=== PATIENT | female | born 1930 | race Caucasian/White ===

== ENCOUNTER 2017-05-14 09:16 | Inpatient (IN) | payer OTHER, MEDICARE ==
[2017-05-14] VITALS (10 sets, daily range): BP systolic 110–128; BP diastolic 53–86; PULSE 85–104; RESP 16–20; TEMP 97.4–97.8; O2SAT 95–97
[~2017-05-14] VITALS: Ht 149.9 cm; Wt 58.9 kg
[2017-05-14 10:39] LABS: AUTOMATED NEUTROPHIL # 10.8 TH/MM3 (1.8-7.7); BASOPHIL % 0.4 % (0.0-2.0); EOSINOPHIL % 0.1 % (0.0-4.0); HEMATOCRIT 30.3 % (35.0-46.0); HEMOGLOBIN 9.8 GM/DL (11.6-15.3); LYMPH % 8.4 % (9.0-44.0); LYMPHOCYTE # 1.1 TH/MM3 (1.0-4.8); MEAN CELL VOLUME 92.6 FL (80.0-100.0); MEAN CORPUSCULAR HEMOGLOBIN 29.9 PG (27.0-34.0); MEAN CORPUSCULAR HGB CONC 32.3 % (32.0-36.0); MEAN PLATELET VOLUME 8.2 FL (7.0-11.0); NEUT % 83.1 % (16.0-70.0); PLATELET COUNT 293 TH/MM3 (150-450); RED BLOOD COUNT 3.28 MIL/MM3 (4.00-5.30); RED CELL DISTRIBUTION WIDTH 14.2 % (11.6-17.2)
[2017-05-14 10:49] LABS: BILIRUBIN, URINE NEG (NEG); BLOOD, URINE NEG (NEG); GLUCOSE,URINE NEG (NEG); HYALINE CAST, URINE 1 /lpf (RARE); KETONE, URINE TRACE mg/dL (NEG); MUCUS URINE FEW /lpf (OCC); NITRITE,URINE NEG (NEG); PH, URINE 5.5 (5.0-8.5); URINE COLOR YELLOW (YELLW/STRAW); URINE LEUKOCYTE ESTERASE NEG (NEG)
[2017-05-14 10:58] LABS: ALBUMIN 2.8 GM/DL (3.4-5.0); ALT (GPT) 15 U/L (10-53); AST (GOT) 15 U/L (15-37); BICARBONATE 24.9 MEQ/L (21.0-32.0); BLOOD UREA NITROGEN 50 MG/DL (7-18); CHLORIDE 103 MEQ/L (98-107); CREATININE 0.81 MG/DL (0.50-1.00); GLOMERULAR FILTRATION RATE 67 ML/MIN (>89); GLUCOSE,RANDOM 124 MG/DL (74-106); SODIUM (NA) 138 MEQ/L (136-145)
[2017-05-14 11:08] LABS: ALKALINE PHOSPHATASE 74 U/L (45-117); TOTAL BILIRUBIN ADULT 0.6 MG/DL (0.2-1.0); TROPONIN I 0.23 NG/ML (0.02-0.05)
--- NOTE | 2017-05-14 11:27 | RADRPT ---
EXAM DATE/TIME: 05/14/2017 10:49 [facility] COMPARISON: No previous studies available for comparison. INDICATIONS : Lower extremity swelling for several days. MEDICAL HISTORY : None. SURGICAL HISTORY : None. ENCOUNTER: Initial ACUITY: 2 days PAIN SCORE: 0/10 LOCATION: Bilateral chest FINDINGS: AP and lateral views of the chest were obtained. AP views Midinspiratory crowding the lung vasculatur e. There is mild streaky opacity at the lung bases left greater than right. The heart size is mildly enlarged. There is mild blunting of both costophrenic angles posteriorly. The bony thorax is intact. There are overlying electrocardiogram leads. Chronic changes are present in the aorta. CONCLUSION: 1. Midinspiratory exam with streaky opacity at the lung bases which may represent atelectasis or scar ring. 2. Mild cardiomegaly with no definite pulmonary edema. Jerry Sy MD on May 14, 2017 at 11:24 Board Certified Radiologist. This report was verified electronically.
--- NOTE | 2017-05-14 11:43 | RADRPT ---
EXAM DATE/TIME: 05/14/2017 11:12 [facility] COMPARISON: No previous studies available for comparison. INDICATIONS : Swelling bilateral legs,shortness of breath,increase confusion RADIATION DOSE: 56.35 CTDIvol (mGy) MEDICAL HISTORY : Cardiovascular disease. SURGICAL HISTORY : None. ENCOUNTER: Initial ACUITY: 2 days PAIN SCALE: 0/10 LOCATION: cranial TECHNIQUE: Multiple contiguous axial images were obtained of the head. Using automated exposure control and adj ustment of the mA and/or kV according to patient size, radiation dose was kept as low as reasonably a chievable to obtain optimal diagnostic quality images. DICOM format image data is available electro nically for review and comparison. FINDINGS: CEREBRUM: The ventricles are normal for age with diffuse atrophic change and chronic small vessel ischemic dunn ges. There is a small lacunar infarct in right basal ganglia. No evidence of midline shift, mass lesi on, hemorrhage or acute infarction. No extra-axial fluid collections are seen. POSTERIOR FOSSA: The cerebellum and brainstem are intact. The 4th ventricle is midline. The cerebellopontine angle i s unremarkable. EXTRACRANIAL: The visualized portion of the orbits is intact. SKULL: The calvaria is intact. No evidence of skull fracture. CONCLUSION: 1. No acute hemorrhage or mass effect. 2. Atrophy and chronic small vessel ischemic change. 3. Small lacunar infarct in the right basal ganglia. Jerry Sy MD on May 14, 2017 at 11:40 Board Certified Radiologist. This report was verified electronically.
--- NOTE | 2017-05-14 12:00 | PD ---
HPI Chief Complaint: Edema Time Seen by Provider: 09:55 Travel History International Travel<30 days: No Contact w/Intl Traveler<30days: No Traveled to known affect area: No History of Present Illness HPI This is an 87-year-old female with no reported past medical history, who has not seen a doctor in 8 years, who presents today with her family with complaints of shortness of breath, extremity swelling, decreased appetite, and weakness. The patient is a poor historian and does not give clear history. There is also history that she has been urinating a lot and has had incontinence. Family members report she's been more confused than her baseline. There is no reported fevers, chills. Family reports that she can only walk a few feet before becoming winded. There are no other complaints at the time of my examination. [facility] Past Medical History Medical History: Denies Significant Hx Cardiovascular Problems: Yes Diminished Hearing: No Tetanus Vaccination: Unknown Past Surgical History Surgical History: No Previous Surgery Social History Alcohol Use: No Tobacco Use: No Substance Use: No Allergies-Medications (Allergen,Severity, Reaction): Coded Allergies: No Known Allergies (Verified Allergy, Unknown, 05/14/17) Reported Meds & Prescriptions Reported Meds & Active Scripts Active No Active Prescriptions or Reported Medications Review of Systems Except as stated in HPI: all other systems reviewed are Neg General / Constitutional: No: Fever, Chills HENT: No: Headaches, Lightheadedness, Neck Pain Cardiovascular: No: Chest Pain or Discomfort, Palpitations Respiratory: Positive: Shortness of Breath, No: Cough, Wheezing Gastrointestinal: Positive: Loss of Appetite, No: Nausea, Vomiting, Abdominal Pain Genitourinary: Positive: Incontinence, No: Frequency, Dysuria Musculoskeletal: Positive: Weakness (generalized), Edema, No: Pain Neurologic: Positive: Weakness (Gen.), Change in Mentation, No: Headache ( slight mental status changes) Endocrine: Positive: Polyuria, No: Polydipsia Hematologic/Lymphatic: No: Easy Bruising Physical Exam Narrative GENERAL: Well-developed well-nourished female in no obvious respiratory distress. SKIN: Focused skin assessment warm/dry. HEAD: Atraumatic. Normocephalic. EYES: Pupils equal and round. No scleral icterus. No injection or drainage. ENT: No nasal bleeding or discharge. Mucous membranes pink and moist. NECK: Trachea midline. No JVD. Supple. CARDIOVASCULAR: Regular rate and rhythm. No murmur appreciated. RESPIRATORY: Coarse rhonchi bilaterally. Questionable Rales at bilateral bases. GASTROINTESTINAL: Abdomen soft, non-tender, nondistended. MUSCULOSKELETAL: No obvious deformities. No clubbing. No cyanosis. 2+ pitting edema bilateral lower extremities. NEUROLOGICAL: Awake and alert. Questionable mild confusion No obvious cranial nerve deficits. Motor grossly within normal limits. Normal speech. PSYCHIATRIC: Appropriate mood and affect; insight and judgment normal. Data Data Last Documented VS Vital Signs Date Time Temp Pulse Resp B/P (MAP) Pulse Ox O2 Delivery O2 Flow Rate FiO2 05/14/17 10:36 97.8 90 16 114/86 (95) 95 Room Air Orders Orders Electrocardiogram (05/14/17 09:55) Complete Blood Count With Diff (05/14/17 09:55) Comprehensive Metabolic Panel (05/14/17 09:55) Ckmb (Isoenzyme) Profile (05/14/17 09:55) Troponin I (05/14/17 09:55) B-Type Natriuretic Peptide (05/14/17 09:55) Urinalysis - C+S If Indicated (05/14/17 09:55) Thyroid Stimulating Hormone (05/14/17 09:55) Chest, Pa & Lat (05/14/17 09:55) Ct Brain W/O Iv Contrast(Rout) (05/14/17 09:55) Iv Access Insert/Monitor (05/14/17 09:55) Ecg Monitoring (05/14/17 09:55) Oximetry (05/14/17 09:55) Admit Order (Ed Use Only) (05/14/17 12:21) Labs Laboratory Tests Test 05/14/17 10:10 White Blood Count 13.0 TH/MM3 Red Blood Count 3.28 MIL/MM3 Hemoglobin 9.8 GM/DL Hematocrit 30.3 % Mean Corpuscular Volume 92.6 FL Mean Corpuscular Hemoglobin 29.9 PG Mean Corpuscular Hemoglobin Concent 32.3 % Red Cell Distribution Width 14.2 % Platelet Count 293 TH/MM3 Mean Platelet Volume 8.2 FL Neutrophils (%) (Auto) 83.1 % Lymphocytes (%) (Auto) 8.4 % Monocytes (%) (Auto) 8.0 % Eosinophils (%) (Auto) 0.1 % Basophils (%) (Auto) 0.4 % Neutrophils # (Auto) 10.8 TH/MM3 Lymphocytes # (Auto) 1.1 TH/MM3 Monocytes # (Auto) 1.0 TH/MM3 Eosinophils # (Auto) 0.0 TH/MM3 Basophils # (Auto) 0.0 TH/MM3 CBC Comment DIFF FINAL Differential Comment Urine Color YELLOW Urine Turbidity CLEAR Urine pH 5.5 Urine Specific [place] 1.025 Urine Protein TRACE mg/dL Urine Glucose (UA) NEG mg/dL Urine Ketones TRACE mg/dL Urine Occult Blood NEG Urine Nitrite NEG Urine Bilirubin NEG Urine Urobilinogen LESS THAN 2.0 MG/DL Urine Leukocyte Esterase NEG Urine RBC LESS THAN 1 /hpf Urine WBC 1 /hpf Urine Hyaline Casts 1 /lpf Urine Mucus FEW /lpf Microscopic Urinalysis Comment CULT NOT INDICATED Blood Urea Nitrogen 50 MG/DL Creatinine 0.81 MG/DL Random Glucose 124 MG/DL Total Protein 7.0 GM/DL Albumin 2.8 GM/DL Calcium Level 8.0 MG/DL Alkaline Phosphatase 74 U/L Aspartate Amino Transf (AST/SGOT) 15 U/L Alanine Aminotransferase (ALT/SGPT) 15 U/L Total Bilirubin 0.6 MG/DL Sodium Level 138 MEQ/L Potassium Level 3.3 MEQ/L Chloride Level 103 MEQ/L Carbon Dioxide Level 24.9 MEQ/L Anion Gap 10 MEQ/L Estimat Glomerular Filtration Rate 67 ML/MIN Total Creatine Kinase 64 U/L Troponin I 0.23 NG/ML B-Type Natriuretic Peptide 4277 PG/ML Thyroid Stimulating Hormone 3rd Gen 0.806 uIU/ML MDM Medical Decision Making Medical Screen Exam Complete: Yes Emergency Medical Condition: Yes Differential Diagnosis CHF versus anasarca versus renal failure versus intracranial abnormalities Narrative Course This is an 87-year-old female who reports no past medical history, who has not seen a doctor in several years, presents today with complaints of swelling and shortness of breath. The patient is not currently taking any medications. The patient's BUN is elevated over 40. The patient also has anemia. Chest she has been started on I V fluids. X-ray shows what appears to be CHF and her BNP is 4700. She will be admitted to the hospital under the [facility] service. Case was discussed with Dr. Julian who is in agreement. Diagnosis Primary Impression: Acute kidney injury Additional Impressions: Bilateral lower extremity edema CHF (congestive heart failure) Elevated troponin LVH with strain pattern Anemia Altered sensorium Admitting Information Admitting Physician Requests: Admit Scripts No Active Prescriptions or Reported Meds Luis Alberto Cat MD May 14, 2017 12:00
[2017-05-14] MEDS ORDERED: oxyCODONE/ACETAMINOPHEN 5 MG/325 MG TAB PO PRN (13:00)
[2017-05-14] MEDS ORDERED: cloNIDine HCL 0.1 MG TAB PO PRN (13:00)
[2017-05-14] MEDS ORDERED: MORPHINE SULFATE 2 MG/ML INJ IV PUSH PRN ×2 (13:00)
[2017-05-14] MEDS ORDERED: MAGNESIUM HYDROXIDE SUSP 30 ML CUP PO PRN (13:00)
[2017-05-14] MEDS ORDERED: BISACODYL 10 MG SUPP RECTAL PRN (13:00)
[2017-05-14] MEDS ORDERED: DEXTROSE 50% IN WATER 50 ML VIAL(D50) IV PUSH PRN (13:00)
[2017-05-14] MEDS ORDERED: NALOXONE HCL 0.4 MG/ML AMP IV PUSH PRN (13:00)
[2017-05-14] MEDS ORDERED: GLUCAGON 1 MG/ML VIAL OTHER PRN (13:00)
[2017-05-14] MEDS ORDERED: SODIUM CHLORIDE 0.9% FLUSH 10 ML FLUSH IV FLUSH PRN (13:00)
[2017-05-14] MEDS ORDERED: ONDANSETRON HCL 4 MG/2 ML VIAL IVP PRN (13:00)
[2017-05-14] MEDS ORDERED: ACETAMINOPHEN 325 MG TAB PO PRN ×2 (13:00)
[2017-05-14] MEDS ORDERED: METOCLOPRAMIDE HCL 10 MG/2 ML VIAL IV PUSH PRN (13:00)
[2017-05-14] MEDS ORDERED: oxyCODONE/ACETAMINOPHEN 10 MG/325 MG TAB PO PRN (13:00)
[2017-05-14] MEDS ORDERED: LACTULOSE SYRUP 20 GM/30 ML CUP PO PRN (13:00)
[2017-05-14] MEDS ORDERED: SENNOSIDES 8.6 MG TAB PO PRN (13:00)
--- NOTE | 2017-05-14 13:43 | EKG ---
Date Performed: 05/14/2017 Time Performed: 10:10:21 PTAGE: 87 years EKG: Sinus rhythm POSSIBLE LEFT ATRIAL ENLARGEMENT MARKED LEFT AXIS DEVIATION LEFT VENTRICULAR HYPERTROPHY AND ST-T CH TRACY POSSIBLE ANTEROSEPTAL MYOCARDIAL INFARCTION ABNORMAL ECG NO PREVIOUS TRACING DOCTOR: Joshua Rosales Interpretating Date/Time 05/14/2017 13:43:16
[2017-05-14] MEDS: ENOXAPARIN SODIUM 30 MG/0.3 ML SYRINGE SQ SCH (14:14)
--- NOTE | 2017-05-14 15:58 | HHI.HP ---
[facility] No Primary Care Physician Admission Diagnosis acute kidney injury, elevated troponin, chf, peripheral edema Diagnoses: Chief Complaint: Edema Travel History International Travel<30 Days: No Contact w/Intl Traveler <30 Da: No Traveled to Known Affected Are: No History of Present Illness Patient is an 87-year-old female who states that she has no real medical history and who has not seen a doctor in at least 8 years came in today with her family with the positive shortness of breath and some extremity swelling and decreased appetite and weakness. Patient states she has a history of tonsillectomy AND appendectomy. As well as some surgery on her left breast. Patient states that she is here visiting her daughter and she is from [place]. Also has been some history of urinating a lot and some incontinence per chart review family reported that she's been more confused than her baseline.. No fevers or chills patient supposedly becomes winded after only walking a few feet no other complaints Patient denies any hypertension or diabetes Review of Systems Constitutional: COMPLAINS OF: Fatigue, DENIES: Diaphoretic episodes, Fever, Weight gain, Weight loss, Chills, Dizziness, Change in appetite, Night Sweats Endocrine: DENIES: Abnorml menstrual pattern, Heat/cold intolerance, Polydipsia , Polyuria, Polyphagia Eyes: DENIES: Blurred vision, Diplopia, Eye inflammation, Eye pain, Vision loss , Photosensitivity, Double Vision Ears, nose, mouth, throat: DENIES: Tinnitus, Hearing loss, Vertigo, Nasal discharge, Oral lesions, Throat pain, Hoarseness, Ear Pain, Running Nose, Epistaxis, Toothache, Odynophagia Respiratory: COMPLAINS OF: Shortness of breath, DENIES: Apneas, Cough, Snoring , Wheezing, Hemoptysis, Sputum production Cardiovascular: COMPLAINS OF: Dyspnea on Exertion, PND, Lower Extremity Edema, Orthopnea, DENIES: Chest pain, Palpitations, Syncope, Claudication Gastrointestinal: DENIES: Abdominal pain, Black stools, Bloody stools, Constipation, Nausea, Vomiting, Difficulty Swallowing, Anorexia Genitourinary: DENIES: Abnormal vaginal bleeding, Dysmenorrhea, Dyspareunia, Sexual dysfunction, Urinary frequency, Urinary incontinence, Urgency, Nocturia, Vaginal discharge Musculoskeletal: DENIES: Joint pain, Muscle aches, Stiffness, Joint Swelling, Back pain, Neck pain Integumentary: DENIES: Abnormal pigmentation, Pruritus, Rash, Nail changes, Breast skin changes, Nipple discharge Hematologic/lymphatic: DENIES: Bruising, Lymphadenopathy Immunologic/allergic: DENIES: Eczema, Urticaria Neurologic: COMPLAINS OF: Poor Balance, DENIES: Abnormal gait, Headache, Localized weakness, Paresthesias, Seizures, Speech Problems, Tremor Psychiatric: DENIES: Anxiety, Confusion, Mood changes, Depression, Hallucinations, Agitation, Suicidal Ideation, Homicidal Ideation, Delusions Except as stated in HPI: all other systems reviewed are Neg Past Family Social History Past Medical History Denies Past Surgical History Tonsillectomy Appendectomy Left breast non-cancerous tumor removal Reported Medications Reported Meds & Active Scripts Active No Active Prescriptions or Reported Medications Allergies: Coded Allergies: No Known Allergies (Verified Allergy, Unknown, 05/14/17) Active Ordered Medications Current Medications Dextrose (D50w (Vial) Inj) 50 ml UNSCH PRN IV PUSH HYPOGLYCEMIA-SEE COMMENTS; Start 05/14/17 at 13:00 Glucagon (Glucagon Inj) 1 mg UNSCH PRN OTHER HYPOGLYCEMIA-SEE COMMENTS; Start 05/14/17 at 13:00 Clonidine (Catapres) 0.1 mg Q4H PRN PO SBP>160, DBP>90; Start 05/14/17 at 13: 00 Insulin Aspart (NovoLOG SUPPLEMENTAL SCALE) 1 ACHS SLIDING SCALE SQ ; Start at 17:00 Sodium Chloride (NS Flush) 2 ml UNSCH PRN IV FLUSH FLUSH AFTER USING IV ACCESS ; Start 05/14/17 at 13:00 Sodium Chloride (NS Flush) 2 ml BID IV FLUSH ; Start 05/14/17 at 21:00 Acetaminophen (Tylenol) 650 mg Q4H PRN PO TEMP > 100.4; Start 05/14/17 at 13: 00 Ondansetron HCl (Zofran Inj) 4 mg Q6H PRN IVP NAUSEA OR VOMITING; Start at 13:00 Metoclopramide HCl (Reglan Inj) 5 mg Q6H PRN IV PUSH NAUSEA OR VOMITING; Start 05/14/17 at 13:00 Enoxaparin Sodium (Lovenox Inj) 30 mg Q24H SQ Last administered on 05/14/17t 14:14; Start 05/14/17 at 14:00 Acetaminophen (Tylenol) 650 mg Q6H PRN PO PAIN SCALE 1 TO 2; Start 05/14/17 at 13:00 Oxycodone/ Acetaminophen (Percocet 5-325 Mg) 1 tab Q6H PRN PO PAIN SCALE 3 TO 5; Start 05/14/17 at 13:00 Oxycodone/ Acetaminophen (Percocet 10-325 Mg) 1 tab Q6H PRN PO PAIN SCALE 6 TO 10; Start 05/14/17 at 13:00 Morphine Sulfate (Morphine Inj) 2 mg Q3H PRN IV PUSH Pain 3-5; if unable to take PO; Start 05/14/17 at 13:00 Morphine Sulfate (Morphine Inj) 4 mg Q3H PRN IV PUSH Pain 6-10;if unable to take PO; Start 05/14/17 at 13:00 Naloxone HCl (Narcan Inj) 0.4 mg UNSCH PRN IV PUSH SEE LABEL COMMENTS; Start 05/14/17 at 13:00 Senna/Docusate Sodium (Hoa-Colace) 1 tab BID PO ; Start 05/14/17 at 21:00 Magnesium Hydroxide (Milk Of Magnesia Liq) 30 ml Q12H PRN PO Mild constipation ; Start 05/14/17 at 13:00 Sennosides (Senokot) 17.2 mg Q12H PRN PO Moderate constipation; Start at 13:00 Bisacodyl (Dulcolax Supp) 10 mg DAILY PRN RECTAL SEVERE CONSITIPATION; Start 05/14/17 at 13:00 Lactulose (Lactulose Liq) 30 ml DAILY PRN PO SEVERE CONSITIPATION; Start 05/14 at 13:00 Family History Denies any medical problems Social History Denies any tobacco alcohol or illicits originally from [place] visiting her daughter she states Physical Exam Vital Signs Vital Signs Date Time Temp Pulse Resp B/P (MAP) Pulse Ox O2 Delivery O2 Flow Rate FiO2 05/14/17 13:44 05/14/17 13:44 92 16 118/68 (85) 96 Room Air 05/14/17 10:36 97.8 90 16 114/86 (95) 95 Room Air 05/14/17 10:00 97.8 92 16 114/86 (95) 95 Room Air 05/14/17 09:59 Room Air 05/14/17 09:21 95 20 128/61 (83) 97 Room Air Physical Exam GENERAL: This is a well-nourished, well-developed patient, in some mild distress. SKIN: No rashes, ecchymoses or lesions. Cool and dry. HEAD: Atraumatic. Normocephalic. No temporal or scalp tenderness. EYES: Pupils equal round and reactive. Extraocular motions intact. No scleral icterus. No injection or drainage. ENT: Nose without bleeding, purulent drainage or septal hematoma. Throat without erythema, tonsillar hypertrophy or exudate. Uvula midline. Airway patent. Tongue is midline NECK: Trachea midline. No JVD or lymphadenopathy. Supple, nontender, no meningeal signs. CARDIOVASCULAR: Regular rate and rhythm without murmurs, gallops, or rubs. S1 and S2 no S3 or S4 RESPIRATORY: Clear to auscultation. Breath sounds equal bilaterally. No wheezes , or rhonchi. Some basilar rales GASTROINTESTINAL: Abdomen soft, non-tender, nondistended. No hepato-splenomegaly , or palpable masses. No guarding. MUSCULOSKELETAL: Extremities without clubbing, cyanosis, +3-4 bilateral lower extremity edema. No joint tenderness, effusion, or edema noted. No calf tenderness. Negative Homans sign bilaterally. NEUROLOGICAL: Awake and alert. Cranial nerves II through XII intact. Motor and sensory grossly within normal limits. Five out of 5 muscle strength in all muscle groups. Normal speech. Insight and judgment is limited Mood and behaviors appropriate Laboratory Laboratory Tests Test 05/14/17 10:10 White Blood Count 13.0 Red Blood Count 3.28 Hemoglobin 9.8 Hematocrit 30.3 Mean Corpuscular Volume 92.6 Mean Corpuscular Hemoglobin 29.9 Mean Corpuscular Hemoglobin Concent 32.3 Red Cell Distribution Width 14.2 Platelet Count 293 Mean Platelet Volume 8.2 Neutrophils (%) (Auto) 83.1 Lymphocytes (%) (Auto) 8.4 Monocytes (%) (Auto) 8.0 Eosinophils (%) (Auto) 0.1 Basophils (%) (Auto) 0.4 Neutrophils # (Auto) 10.8 Lymphocytes # (Auto) 1.1 Monocytes # (Auto) 1.0 Eosinophils # (Auto) 0.0 Basophils # (Auto) 0.0 CBC Comment DIFF FINAL Differential Comment Urine Color YELLOW Urine Turbidity CLEAR Urine pH 5.5 Urine Specific [place] 1.025 Urine Protein TRACE Urine Glucose (UA) NEG Urine Ketones TRACE Urine Occult Blood NEG Urine Nitrite NEG Urine Bilirubin NEG Urine Urobilinogen LESS THAN 2.0 Urine Leukocyte Esterase NEG Urine RBC LESS THAN 1 Urine WBC 1 Urine Hyaline Casts 1 Urine Mucus FEW Microscopic Urinalysis Comment CULT NOT INDICATED Blood Urea Nitrogen 50 Creatinine 0.81 Random Glucose 124 Total Protein 7.0 Albumin 2.8 Calcium Level 8.0 Alkaline Phosphatase 74 Aspartate Amino Transf (AST/SGOT) 15 Alanine Aminotransferase (ALT/SGPT) 15 Total Bilirubin 0.6 Sodium Level 138 Potassium Level 3.3 Chloride Level 103 Carbon Dioxide Level 24.9 Anion Gap 10 Estimat Glomerular Filtration Rate 67 Total Creatine Kinase 64 Troponin I 0.23 B-Type Natriuretic Peptide 4277 Thyroid Stimulating Hormone 3rd Gen 0.806 Result Diagram: 05/14/17 1010 05/14/17 1010 Imaging Last Impressions Head CT 05/14/17954 Signed Impressions: Service Date/Time: Sunday, May 14, 2017 11:12 - CONCLUSION: 1. No acute hemorrhage or mass effect. 2. Atrophy and chronic small vessel ischemic change. 3. Small lacunar infarct in the right basal ganglia. Jerry Sy MD Chest X-Ray 05/14/17954 Signed Impressions: Service Date/Time: Sunday, May 14, 2017 10:49 - CONCLUSION: 1. Midinspiratory exam with streaky opacity at the lung bases which may represent atelectasis or scarring. 2. Mild cardiomegaly with no definite pulmonary edema. Jerry Sy MD Caprini VTE Risk Assessment Caprini VTE Risk Assessment: Mod/High Risk (score >= 2) Caprini Risk Assessment Model Point Value = 1 Point Value = 2 Point Value = 3 Point Value = 5 Age 41-60 Minor surgery BMI > 25 kg/m2 Swollen legs Varicose veins or History of unexplained or recurrent spontaneous Oral contraceptives or hormone replacement Sepsis (< 1 month) Serious lung disease, including pneumonia (< 1 month) Abnormal pulmonary function Acute myocardial infarction Congestive heart failure (< 1 month) History of inflammatory bowel disease Medical patient at bed rest Age 61-74 Arthroscopic surgery Major open surgery (> 45 min) Laparoscopic surgery (> 45 min) Malignancy Confined to bed (> 72 hours) Immobilizing plaster cast Central venous access Age >= 75 History of VTE Family history of VTE Factor V Leiden Prothrombin [id number] Lupus anticoagulant Anticardiolipin antibodies Elevated serum homocysteine Heparin-induced thrombocytopenia Other congenital or acquired thrombophilia Stroke (< 1 month) Elective arthroplasty Hip, pelvis, or leg fracture Acute spinal cord injury (< 1 month) Prophylaxis Regimen Total Risk Factor Score Risk Level Prophylaxis Regimen 0-1 Low Early ambulation 2 Moderate Order ONE of the following: *Sequential Compression Device (SCD) *Heparin 5000 units SQ BID 3-4 Higher Order ONE of the following medications: *Heparin 5000 units SQ TID *Enoxaparin/Lovenox 40 mg SQ daily (WT < 150 kg, CrCl > 30 mL/min) *Enoxaparin/Lovenox 30 mg SQ daily (WT < 150 kg, CrCl > 10-29 mL/min) *Enoxaparin/Lovenox 30 mg SQ BID (WT < 150 kg, CrCl > 30 mL/min) AND/OR *Sequential Compression Device (SCD) 5 or more Highest Order ONE of the following medications: *Heparin 5000 units SQ TID (Preferred with Epidurals) *Enoxaparin/Lovenox 40 mg SQ daily (WT < 150 kg, CrCl > 30 mL/min) *Enoxaparin/Lovenox 30 mg SQ daily (WT < 150 kg, CrCl > 10-29 mL/min) *Enoxaparin/Lovenox 30 mg SQ BID (WT < 150 kg, CrCl > 30 mL/min) AND *Sequential Compression Device (SCD) Assessment and Plan Problem List: (1) CHF (congestive heart failure) ICD Code: I50.9 - Heart failure, unspecified Status: Acute (2) Anemia ICD Code: D64.9 - Anemia, unspecified Status: Acute (3) Elevated troponin ICD Code: R74.8 - Abnormal levels of other serum enzymes Status: Acute (4) Acute kidney injury ICD Code: N17.9 - Acute kidney failure, unspecified Status: Acute (5) Bilateral lower extremity edema ICD Code: R60.0 - Localized edema Status: Acute (6) Altered sensorium ICD Code: R40.4 - Transient alteration of awareness Status: Acute (7) Hypokalemia ICD Code: E87.6 - Hypokalemia Assessment and Plan Congestive heart failure and elevated troponins. Will diurese with some Lasix. Consult cardiology. Trend troponins. We will get an echocardiogram. Accurate I's and O's and daily weights Hypokalemia Will replace Bilateral lower extremity edema we'll diuresis monitor for I's and O's and daily weights Altered mental status will monitor Dyspnea on exertion shortness of breath Will diurese and check echo Renal insufficiency we'll continue to monitor daily diurese Poor protein status monitor daily protein calorie malnourishment We'll continue to monitor here throughout the admission for any other issues that may arise Code Status Full code Discussed Condition With ER and patient and RN and physical therapy Physician Certification 2 Midnight Certification Type: Admission for Inpatient Services Order for Inpatient Services The services are ordered in accordance with Medicare regulations or non- Medicare payer requirements, as applicable. In the case of services not specified as inpatient-only, they are appropriately provided as inpatient services in accordance with the 2-midnight benchmark. Estimated LOS (days): 3 3 days is the estimated time the patient will need to remain in the hospital, assuming treatment plan goals are met and no additional complications. Post-Hospital Plan: Not yet determined Calvin Julian DO May 14, 2017 15:58
[2017-05-14] MEDS ORDERED: FUROSEMIDE 20 MG/2 ML VIAL IV PUSH SCH (16:00)
[2017-05-14 16:55] LABS: TROPONIN I 0.21 NG/ML (0.02-0.05)
[2017-05-14] MEDS: ASPIRIN EC 81 MG TABEC PO SCH (17:03)
[2017-05-14] MEDS: INSULIN ASPART SUPPLEMENTAL SCALE SQ SCH ×2 (17:07→20:36)
--- NOTE | 2017-05-14 18:15 | MB ---
cc: SNOW CASTILLO M.D. DATE OF CONSULTATION: 05/14/2017 REASON FOR CONSULTATION: Abnormal troponin level, congestive heart failure. HISTORY OF PRESENT ILLNESS History is obtained from the patient who is a fair historian. She is an 87-year-old white female with no major past medical history who was brought to the hospital apparently with complaints of increasing shortness of breath, pedal edema, confusion. The patient at this time denies any recent chest pains, shortness of breath, dizziness, syncope, near-syncope, palpitations, paroxysmal nocturnal dyspnea. At times she states she has mild pedal edema. PAST MEDICAL HISTORY None. PAST SURGICAL HISTORY 1. Tonsillectomy 2. Appendectomy 3. Left breast surgery for benign tumor. MEDICATIONS AT HOME: None. ALLERGIES NO KNOWN DRUG ALLERGIES. FAMILY HISTORY Noncontributory. SOCIAL HISTORY The patient denies alcohol or tobacco abuse. REVIEW OF SYSTEMS: As in the history of present illness otherwise negative or noncontributory. She also denies headache, abdominal pain, melena, dyspepsia, bright red blood per rectum, cough, fevers. PHYSICAL EXAMINATION: VITAL SIGNS: Her blood pressure is 112/53 with a pulse of 97, respiratory rate 16. GENERAL: She is a well-developed, well-nourished white female in no acute distress. HEENT examination: Jugular venous pressure is normal. Carotid pulses are 1+ bilaterally and without bruits. CHEST: Examination of the chest reveals clear lung laurent. CARDIAC: On cardiac examination she has a regular rhythm and rate with a grade II/ systolic ejection murmur heard at the base of the heart. The S2 heart sound is markedly diminished. No gallop is audible. There may also be a I-II/ diastolic murmur at the right upper sternal border. ABDOMEN: On abdominal examination she has a soft, obese, nontender abdomen. Bowel sounds are present. There is no definite hepatosplenomegaly. EXTREMITIES: Examination of extremities reveals no clubbing or cyanosis. There is trace pretibial edema bilaterally. EKG shows sinus rhythm, left ventricular hypertrophy with repolarization abnormality, left axis deviation, septal infarct age undetermined. Chest x-ray: Shows increased interstitial markings. LABORATORY DATA: Laboratory data includes WBC 13.0, hemoglobin 9.8, platelets 293, potassium 3.3, BUN 50, creatinine 0.81, troponin 0.23. Brain nitrate peptide level 4277. IMPRESSION: Probable congestive heart failure, abnormal troponin level in this 87 year-old white female with apparently no major past medical history. The elevated brain nitrate peptide level, chest x-ray findings, recent symptoms are suggestive of congestive heart failure. Overall I doubt the slightly abnormal troponin level is due to acute coronary syndrome. She has had no chest pain symptoms. The slight elevation in troponin may be due to congestive heart failure. The precipitating factor for her congestive heart failure may be valvular disease. Exam does suggest the possibility of severe aortic stenosis, possibly aortic regurgitation as well. RECOMMENDATIONS 1. Agree with gentle IV Lasix diuresis. 2. Initiate beta-tej therapy. 3. Await her 2D echo. 4. Daily aspirin. MD TERRY Oro/TAYLER /4:12 PM /5:24 PM MEGHA
[2017-05-14] MEDS: SODIUM CHLORIDE 0.9% FLUSH 10 ML FLUSH IV FLUSH SCH (20:37)
[2017-05-14] MEDS: CARVEDILOL 3.125 MG TAB PO SCH (20:37)
[2017-05-14] MEDS: DOCUSATE SODIUM 50 MG/SENNA 8.6 MG TAB PO SCH (20:37)
[2017-05-14 23:12] LABS: TROPONIN I 0.24 NG/ML (0.02-0.05)
[2017-05-15] VITALS (8 sets, daily range): BP systolic 98–137; BP diastolic 54–83; PULSE 79–99; RESP 18–21; TEMP 97.4–98.3; O2SAT 94–99
--- NOTE | 2017-05-15 07:29 | PD.CARD.PN ---
Subjective Subjective Remarks Denies CP, dyspnea, dizziness, palpitations. Slept well. Objective Medications Item Value Date Time Carvedilol 3.125 mg 05/14/17 2100 (Coreg) Q12HR/PO 05/14/172036 Aspirin 81 mg 05/14/17 1630 (Ecotrin Ec) DAILY/PO 05/14/17 1703 Furosemide 20 mg 05/14/17 1600 (Lasix Inj) DAILY/IV PUSH 05/14/17 1636 Enoxaparin Sodium 30 mg 05/14/17 1400 (Lovenox Inj) Q24H/SQ 05/14/17 1414 Current Medications Medications (Trade) Dose Ordered Sig/Laney Route Start Time Stop Time Status Last Admin (D50w (Vial) Inj) 50 ml UNSCH PRN IV PUSH 05/14/17 13:00 (Glucagon Inj) 1 mg UNSCH PRN OTHER 05/14/17 13:00 (Catapres) 0.1 mg Q4H PRN PO 05/14/17 13:00 (NovoLOG SUPPLEMENTAL SCALE) 1 ACHS SLIDING SCALE SQ 05/14/17 17:00 05/14/17 17:07 (NS Flush) 2 ml UNSCH PRN IV FLUSH 05/14/17 13:00 (NS Flush) 2 ml BID IV FLUSH 05/14/17 21:00 05/14/17 20:37 (Tylenol) 650 mg Q4H PRN PO 05/14/17 13:00 (Zofran Inj) 4 mg Q6H PRN IVP 05/14/17 13:00 (Reglan Inj) 5 mg Q6H PRN IV PUSH 05/14/17 13:00 (Lovenox Inj) 30 mg Q24H SQ 05/14/17 14:00 05/14/17 14:14 (Tylenol) 650 mg Q6H PRN PO 05/14/17 13:00 (Percocet 5-325 Mg) 1 tab Q6H PRN PO 05/14/17 13:00 (Percocet 10-325 Mg) 1 tab Q6H PRN PO 05/14/17 13:00 (Morphine Inj) 2 mg Q3H PRN IV PUSH 05/14/17 13:00 (Morphine Inj) 4 mg Q3H PRN IV PUSH 05/14/17 13:00 (Narcan Inj) 0.4 mg UNSCH PRN IV PUSH 05/14/17 13:00 (Hoa-Colace) 1 tab BID PO 05/14/17 21:00 05/14/17 20:37 (Milk Of Magnesia Liq) 30 ml Q12H PRN PO 05/14/17 13:00 (Senokot) 17.2 mg Q12H PRN PO 05/14/17 13:00 (Dulcolax Supp) 10 mg DAILY PRN RECTAL 05/14/17 13:00 (Lactulose Liq) 30 ml DAILY PRN PO 05/14/17 13:00 (Lasix Inj) 20 mg DAILY IV PUSH 05/14/17 16:00 05/14/17 16:36 (Ecotrin Ec) 81 mg DAILY PO 05/14/17 16:30 05/14/17 17:03 (Coreg) 3.125 mg Q12HR PO 05/14/17 21:00 05/14/17 20:37 Vital Signs / I&O Vital Signs Date Time Temp Pulse Resp B/P (MAP) Pulse Ox O2 Delivery O2 Flow Rate FiO2 05/15/17 04:00 Room Air 05/15/17 04:00 98.3 79 21 118/83 (95) 97 05/15/17 03:55 80 05/15/17 00:00 97.9 90 20 116/58 (77) 94 05/15/17 00:00 Room Air 05/14/17 23:50 85 05/14/17 20:00 Room Air 05/14/17 20:00 97.6 100 20 112/57 (75) 95 05/14/17 19:45 104 05/14/17 16:06 97.4 99 20 110/53 (72) 95 05/14/17 16:01 104 05/14/17 13:48 97.5 97 16 112/53 (72) 97 05/14/17 13:44 05/14/17 13:44 92 16 118/68 (85) 96 Room Air 05/14/17 10:36 97.8 90 16 114/86 (95) 95 Room Air 05/14/17 10:00 97.8 92 16 114/86 (95) 95 Room Air 05/14/17 09:59 Room Air 05/14/17 09:21 95 20 128/61 (83) 97 Room Air I/O 05/14/17 05/14/17 05/14/17 05/15/17 05/15/17 05/15/17 07:00 15:00 23:00 07:00 15:00 23:00 Output Total 700 ml Balance -700 ml Output Urine Total 700 ml # Voids 1 Physical Exam GENERAL: Well developed, well nourished. No acute distress. HEENT: Jugular venous pressure is normal. CHEST: Lungs clear to auscultation bilaterally. Unlabored respiratory effort. CARDIAC: Regular rate and rhythm without S3, S4. II/ PEEWEE RUSB with diminished S2. ABDOMEN: Soft, nontender, no hepatosplenomegaly. Bowel sounds present. EXTREMITIES: No clubbing, cyanosis, or edema. Laboratory Laboratory Tests Test 05/14/17 10:10 05/14/17 16:02 05/14/17 22:26 05/15/17 07:08 White Blood Count 13.0 TH/MM3 Red Blood Count 3.28 MIL/MM3 Hemoglobin 9.8 GM/DL Hematocrit 30.3 % Mean Corpuscular Volume 92.6 FL Mean Corpuscular Hemoglobin 29.9 PG Mean Corpuscular Hemoglobin Concent 32.3 % Red Cell Distribution Width 14.2 % Platelet Count 293 TH/MM3 Mean Platelet Volume 8.2 FL Neutrophils (%) (Auto) 83.1 % Lymphocytes (%) (Auto) 8.4 % Monocytes (%) (Auto) 8.0 % Eosinophils (%) (Auto) 0.1 % Basophils (%) (Auto) 0.4 % Neutrophils # (Auto) 10.8 TH/MM3 Lymphocytes # (Auto) 1.1 TH/MM3 Monocytes # (Auto) 1.0 TH/MM3 Eosinophils # (Auto) 0.0 TH/MM3 Basophils # (Auto) 0.0 TH/MM3 CBC Comment DIFF FINAL Differential Comment Urine Color YELLOW Urine Turbidity CLEAR Urine pH 5.5 Urine Specific [place] 1.025 Urine Protein TRACE mg/dL Urine Glucose (UA) NEG mg/dL Urine Ketones TRACE mg/dL Urine Occult Blood NEG Urine Nitrite NEG Urine Bilirubin NEG Urine Urobilinogen LESS THAN 2.0 MG/DL Urine Leukocyte Esterase NEG Urine RBC LESS THAN 1 /hpf Urine WBC 1 /hpf Urine Hyaline Casts 1 /lpf Urine Mucus FEW /lpf Microscopic Urinalysis Comment CULT NOT INDICATED Blood Urea Nitrogen 50 MG/DL Creatinine 0.81 MG/DL Random Glucose 124 MG/DL Total Protein 7.0 GM/DL Albumin 2.8 GM/DL Calcium Level 8.0 MG/DL Alkaline Phosphatase 74 U/L Aspartate Amino Transf (AST/SGOT) 15 U/L Alanine Aminotransferase (ALT/SGPT) 15 U/L Total Bilirubin 0.6 MG/DL Sodium Level 138 MEQ/L Potassium Level 3.3 MEQ/L Chloride Level 103 MEQ/L Carbon Dioxide Level 24.9 MEQ/L Anion Gap 10 MEQ/L Estimat Glomerular Filtration Rate 67 ML/MIN Total Creatine Kinase 64 U/L 51 U/L 46 U/L Troponin I 0.23 NG/ML 0.21 NG/ML 0.24 NG/ML B-Type Natriuretic Peptide 4277 PG/ML Thyroid Stimulating Hormone 3rd Gen 0.806 uIU/ML Imaging Last [address] 05/14/17954 Signed Impressions: Service Date/Time: Sunday, May 14, 2017 11:12 - CONCLUSION: 1. No acute hemorrhage or mass effect. 2. Atrophy and chronic small vessel ischemic change. 3. Small lacunar infarct in the right basal ganglia. Jerry Sy MD Chest X-Ray 05/14/17954 Signed Impressions: Service Date/Time: Sunday, May 14, 2017 10:49 - CONCLUSION: 1. Midinspiratory exam with streaky opacity at the lung bases which may represent atelectasis or scarring. 2. Mild cardiomegaly with no definite pulmonary edema. Jerry Sy MD Assessment and Plan Problem List: (1) CHF (congestive heart failure) ICD Codes: I50.9 - Heart failure, unspecified Status: Acute Plan: Stable overnight. Appears comfortable, denies any cardiovascular symptoms. Echo pending. Patient may have severe . REC await echo continue beta tej change to oral furosemide (2) Elevated troponin ICD Codes: R74.8 - Abnormal levels of other serum enzymes Status: Acute Plan: Troponin levels remain flat and minimally elevated. Doubt due to ACS. Possibly due to CHF. Rec conservative management and w/u. Await echo. Code Status full code Discussed Condition With patient Problem Qualifiers (1) CHF (congestive heart failure): Qualified Codes: I50.9 - Heart failure, unspecified Luis Armando Singh MD May 15, 2017 07:29
[2017-05-15 07:31] LABS: AUTOMATED NEUTROPHIL # 8.5 TH/MM3 (1.8-7.7); BASOPHIL % 0.3 % (0.0-2.0); HEMATOCRIT 27.1 % (35.0-46.0); HEMOGLOBIN 8.9 GM/DL (11.6-15.3); LYMPH % 11.7 % (9.0-44.0); LYMPHOCYTE # 1.2 TH/MM3 (1.0-4.8); MEAN CORPUSCULAR HEMOGLOBIN 30.2 PG (27.0-34.0); MEAN CORPUSCULAR HGB CONC 32.9 % (32.0-36.0); MEAN PLATELET VOLUME 8.2 FL (7.0-11.0); MONO % 5.8 % (0.0-8.0); MONOCYTE # 0.6 TH/MM3 (0-0.9); NEUT % 82.2 % (16.0-70.0); PLATELET COUNT 258 TH/MM3 (150-450); RED BLOOD COUNT 2.95 MIL/MM3 (4.00-5.30); WHITE BLOOD COUNT 10.4 TH/MM3 (4.0-11.0)
[2017-05-15 07:51] LABS: ALBUMIN 2.7 GM/DL (3.4-5.0); AST (GOT) 22 U/L (15-37); BICARBONATE 24.8 MEQ/L (21.0-32.0); BLOOD UREA NITROGEN 60 MG/DL (7-18); CALCIUM 7.9 MG/DL (8.5-10.1); CHLORIDE 104 MEQ/L (98-107); CREATININE 0.89 MG/DL (0.50-1.00); GLOMERULAR FILTRATION RATE 60 ML/MIN (>89); GLUCOSE,RANDOM 124 MG/DL (74-106); MAGNESIUM 3.2 MG/DL (1.5-2.5); SODIUM (NA) 139 MEQ/L (136-145)
[2017-05-15 08:00] LABS: ALKALINE PHOSPHATASE 76 U/L (45-117); ALT (GPT) 13 U/L (10-53); PHOSPHORUS 4.6 MG/DL (2.5-4.9); TOTAL BILIRUBIN ADULT 0.5 MG/DL (0.2-1.0); TOTAL PROTEIN 6.4 GM/DL (6.4-8.2); TROPONIN I 0.24 NG/ML (0.02-0.05)
[2017-05-15] MEDS: INSULIN ASPART SUPPLEMENTAL SCALE SQ SCH ×4 (08:00→19:36)
[2017-05-15] MEDS: CARVEDILOL 3.125 MG TAB PO SCH ×2 (08:10→19:36)
[2017-05-15] MEDS: SODIUM CHLORIDE 0.9% FLUSH 10 ML FLUSH IV FLUSH SCH ×2 (08:10→19:35)
[2017-05-15] MEDS: ASPIRIN EC 81 MG TABEC PO SCH (08:10)
[2017-05-15] MEDS: DOCUSATE SODIUM 50 MG/SENNA 8.6 MG TAB PO SCH ×2 (08:11→19:35)
[2017-05-15] MEDS: FUROSEMIDE 20 MG TAB PO SCH (08:28)
[2017-05-15] MEDS ORDERED: POTASSIUM CHLORIDE 20 MEQ CONTROLLED RELEASE TAB PO ONE (09:30)
[2017-05-15] MEDS: ENOXAPARIN SODIUM 30 MG/0.3 ML SYRINGE SQ SCH (13:51)
--- NOTE | 2017-05-15 14:14 | HHI.PR ---
Subjective Remarks Patient is an 87-year-old female who states that she has no real medical history and who has not seen a doctor in at least 8 years came in today with her family with the positive shortness of breath and some extremity swelling and decreased appetite and weakness. Patient states she has a history of tonsillectomy AND appendectomy. As well as some surgery on her left breast. Patient states that she is here visiting her daughter and she is from [place]. Also has been some history of urinating a lot and some incontinence per chart review family reported that she's been more confused than her baseline.. No fevers or chills patient supposedly becomes winded after only walking a few feet no other complaints Patient denies any hypertension or diabetes 05-15 seen by cardiology ECHO PENDING MAY HAVE AORTIC STENOSIS CHF DW RN AND PT PLACED ON OXYGEN 2LITERS TODAY CONTINUE PT AND OT AM LABS CONTINUE TO DIURESE Objective Vitals Vital Signs Date Time Temp Pulse Resp B/P (MAP) Pulse Ox O2 Delivery O2 Flow Rate FiO2 05/15/17 12:06 97.9 94 20 103/55 (71) 98 05/15/17 08:29 97.6 99 20 111/54 (73) 96 05/15/17 08:20 Room Air 05/15/17 07:48 84 05/15/17 04:00 Room Air 05/15/17 04:00 98.3 79 21 118/83 (95) 97 05/15/17 03:55 80 05/15/17 00:00 97.9 90 20 116/58 (77) 94 05/15/17 00:00 Room Air 05/14/17 23:50 85 05/14/17 20:00 Room Air 05/14/17 20:00 97.6 100 20 112/57 (75) 95 05/14/17 19:45 104 05/14/17 16:06 97.4 99 20 110/53 (72) 95 05/14/17 16:01 104 I/O 05/14/17 05/14/17 05/14/17 05/15/17 05/15/17 05/15/17 07:00 15:00 23:00 07:00 15:00 23:00 Intake Total 200 ml Output Total 700 ml Balance -700 ml 200 ml Intake Oral 200 ml Output Urine Total 700 ml # Voids 1 2 # Bowel Movements 0 Result Diagram: 05/15/1708 05/15/17707 Other Results Inpatient Medications Acetaminophen (Tylenol) 650 mg Q6H PRN PO PAIN SCALE 1 TO 2; Start 05/14/17 at 13:00 Aspirin (Ecotrin Ec) 81 mg DAILY PO Last administered on 05/15/17 08:10; Start 05/14/17 at 16:30 Bisacodyl (Dulcolax Supp) 10 mg DAILY PRN RECTAL SEVERE CONSITIPATION; Start 05/14/17 at 13:00 Carvedilol (Coreg) 3.125 mg Q12HR PO Last administered on 05/15/17 08:10; Start 05/14/17 at 21:00 Clonidine (Catapres) 0.1 mg Q4H PRN PO SBP>160, DBP>90; Start 05/14/17 at 13: 00 Dextrose (D50w (Vial) Inj) 50 ml UNSCH PRN IV PUSH HYPOGLYCEMIA-SEE COMMENTS; Start 05/14/17 at 13:00 Enoxaparin Sodium (Lovenox Inj) 30 mg Q24H SQ Last administered on 05/15/17 13:51; Start 05/14/17 at 14:00 Furosemide (Lasix Inj) 20 mg DAILY IV PUSH Last administered on 05/14/17 16: 36; Start 05/14/17 at 16:00; Stop 05/15/17 at 07:30; Status DC Furosemide (Lasix) 20 mg DAILY PO Last administered on 05/15/17 08:28; Start 05/15/17 at 09:00 Glucagon (Glucagon Inj) 1 mg UNSCH PRN OTHER HYPOGLYCEMIA-SEE COMMENTS; Start 05/14/17 at 13:00 Insulin Aspart (NovoLOG SUPPLEMENTAL SCALE) 1 ACHS SLIDING SCALE SQ Last administered on 05/14/17 17:07; Start 05/14/17 at 17:00 Lactulose (Lactulose Liq) 30 ml DAILY PRN PO SEVERE CONSITIPATION; Start 05/14 at 13:00 Magnesium Hydroxide (Milk Of Magnesia Liq) 30 ml Q12H PRN PO Mild constipation ; Start 05/14/17 at 13:00 Metoclopramide HCl (Reglan Inj) 5 mg Q6H PRN IV PUSH NAUSEA OR VOMITING; Start 05/14/17 at 13:00 Morphine Sulfate (Morphine Inj) 4 mg Q3H PRN IV PUSH Pain 6-10;if unable to take PO; Start 05/14/17 at 13:00 Naloxone HCl (Narcan Inj) 0.4 mg UNSCH PRN IV PUSH SEE LABEL COMMENTS; Start 05/14/17 at 13:00 Ondansetron HCl (Zofran Inj) 4 mg Q6H PRN IVP NAUSEA OR VOMITING; Start at 13:00 Oxycodone/ Acetaminophen (Percocet 5-325 Mg) 1 tab Q6H PRN PO PAIN SCALE 3 TO 5; Start 05/14/17 at 13:00 Oxycodone/ Acetaminophen (Percocet 10-325 Mg) 1 tab Q6H PRN PO PAIN SCALE 6 TO 10; Start 05/14/17 at 13:00 Potassium Chloride (KCl) 20 meq DAILY PO ; Start 05/16/17 at 09:00 Senna/Docusate Sodium (Hoa-Colace) 1 tab BID PO Last administered on 08:11; Start 05/14/17 at 21:00 Sennosides (Senokot) 17.2 mg Q12H PRN PO Moderate constipation; Start at 13:00 Sodium Chloride (NS Flush) 2 ml BID IV FLUSH Last administered on 05/15/17 08 :10; Start 05/14/17 at 21:00 Imaging Last Impressions Head CT 05/14/17954 Signed Impressions: Service Date/Time: Sunday, May 14, 2017 11:12 - CONCLUSION: 1. No acute hemorrhage or mass effect. 2. Atrophy and chronic small vessel ischemic change. 3. Small lacunar infarct in the right basal ganglia. Jerry Sy MD Chest X-Ray 05/14/17954 Signed Impressions: Service Date/Time: Sunday, May 14, 2017 10:49 - CONCLUSION: 1. Midinspiratory exam with streaky opacity at the lung bases which may represent atelectasis or scarring. 2. Mild cardiomegaly with no definite pulmonary edema. Jerry Sy MD Objective Remarks GENERAL: This is a well-nourished, well-developed patient, in some mild distress. SKIN: No rashes, ecchymoses or lesions. Cool and dry. HEAD: Atraumatic. Normocephalic. No temporal or scalp tenderness. EYES: Pupils equal round and reactive. Extraocular motions intact. No scleral icterus. No injection or drainage. ENT: Nose without bleeding, purulent drainage or septal hematoma. Throat without erythema, tonsillar hypertrophy or exudate. Uvula midline. Airway patent. Tongue is midline NECK: Trachea midline. No JVD or lymphadenopathy. Supple, nontender, no meningeal signs. CARDIOVASCULAR: Regular rate and rhythm without murmurs, gallops, or rubs. S1 and S2 no S3 or S4 RESPIRATORY: Clear to auscultation. Breath sounds equal bilaterally. No wheezes , or rhonchi. Some basilar rales GASTROINTESTINAL: Abdomen soft, non-tender, nondistended. No hepato-splenomegaly , or palpable masses. No guarding. MUSCULOSKELETAL: Extremities without clubbing, cyanosis, +3-4 bilateral lower extremity edema. No joint tenderness, effusion, or edema noted. No calf tenderness. Negative Homans sign bilaterally. NEUROLOGICAL: Awake and alert. Cranial nerves II through XII intact. Motor and sensory grossly within normal limits. Five out of 5 muscle strength in all muscle groups. Normal speech. Insight and judgment is limited Mood and behaviors appropriate Medications and IVs Current Medications Dextrose (D50w (Vial) Inj) 50 ml UNSCH PRN IV PUSH HYPOGLYCEMIA-SEE COMMENTS; Start 05/14/17 at 13:00 Glucagon (Glucagon Inj) 1 mg UNSCH PRN OTHER HYPOGLYCEMIA-SEE COMMENTS; Start 05/14/17 at 13:00 Clonidine (Catapres) 0.1 mg Q4H PRN PO SBP>160, DBP>90; Start 05/14/17 at 13: 00 Insulin Aspart (NovoLOG SUPPLEMENTAL SCALE) 1 ACHS SLIDING SCALE SQ Last administered on 05/14/17 17:07; Start 05/14/17 at 17:00 Sodium Chloride (NS Flush) 2 ml UNSCH PRN IV FLUSH FLUSH AFTER USING IV ACCESS ; Start 05/14/17 at 13:00 Sodium Chloride (NS Flush) 2 ml BID IV FLUSH Last administered on 05/15/17 08 :10; Start 05/14/17 at 21:00 Acetaminophen (Tylenol) 650 mg Q4H PRN PO TEMP > 100.4; Start 05/14/17 at 13: 00 Ondansetron HCl (Zofran Inj) 4 mg Q6H PRN IVP NAUSEA OR VOMITING; Start at 13:00 Metoclopramide HCl (Reglan Inj) 5 mg Q6H PRN IV PUSH NAUSEA OR VOMITING; Start 05/14/17 at 13:00 Enoxaparin Sodium (Lovenox Inj) 30 mg Q24H SQ Last administered on 05/15/17 13:51; Start 05/14/17 at 14:00 Acetaminophen (Tylenol) 650 mg Q6H PRN PO PAIN SCALE 1 TO 2; Start 05/14/17 at 13:00 Oxycodone/ Acetaminophen (Percocet 5-325 Mg) 1 tab Q6H PRN PO PAIN SCALE 3 TO 5; Start 05/14/17 at 13:00 Oxycodone/ Acetaminophen (Percocet 10-325 Mg) 1 tab Q6H PRN PO PAIN SCALE 6 TO 10; Start 05/14/17 at 13:00 Morphine Sulfate (Morphine Inj) 2 mg Q3H PRN IV PUSH Pain 3-5; if unable to take PO; Start 05/14/17 at 13:00 Morphine Sulfate (Morphine Inj) 4 mg Q3H PRN IV PUSH Pain 6-10;if unable to take PO; Start 05/14/17 at 13:00 Naloxone HCl (Narcan Inj) 0.4 mg UNSCH PRN IV PUSH SEE LABEL COMMENTS; Start 05/14/17 at 13:00 Senna/Docusate Sodium (Hoa-Colace) 1 tab BID PO Last administered on 08:11; Start 05/14/17 at 21:00 Magnesium Hydroxide (Milk Of Magnesia Liq) 30 ml Q12H PRN PO Mild constipation ; Start 05/14/17 at 13:00 Sennosides (Senokot) 17.2 mg Q12H PRN PO Moderate constipation; Start at 13:00 Bisacodyl (Dulcolax Supp) 10 mg DAILY PRN RECTAL SEVERE CONSITIPATION; Start 05/14/17 at 13:00 Lactulose (Lactulose Liq) 30 ml DAILY PRN PO SEVERE CONSITIPATION; Start 05/14 at 13:00 Furosemide (Lasix Inj) 20 mg DAILY IV PUSH Last administered on 05/14/17 16: 36; Start 05/14/17 at 16:00; Stop 05/15/17 at 07:30; Status DC Aspirin (Ecotrin Ec) 81 mg DAILY PO Last administered on 05/15/17 08:10; Start 05/14/17 at 16:30 Carvedilol (Coreg) 3.125 mg Q12HR PO Last administered on 05/15/17 08:10; Start 05/14/17 at 21:00 Furosemide (Lasix) 20 mg DAILY PO Last administered on 05/15/17 08:28; Start 05/15/17 at 09:00 Potassium Chloride (KCl) 40 meq ONCE ONCE PO Last administered on 05/15/17 09:46; Start 05/15/17 at 09:30; Stop 05/15/17 at 09:31; Status DC Potassium Chloride (KCl) 20 meq DAILY PO ; Start 05/16/17 at 09:00 A/P Problem List: (1) CHF (congestive heart failure) ICD Code: I50.9 - Heart failure, unspecified Status: Acute (2) Anemia ICD Code: D64.9 - Anemia, unspecified Status: Acute (3) Elevated troponin ICD Code: R74.8 - Abnormal levels of other serum enzymes Status: Acute (4) Acute kidney injury ICD Code: N17.9 - Acute kidney failure, unspecified Status: Acute (5) Bilateral lower extremity edema ICD Code: R60.0 - Localized edema Status: Acute (6) Altered sensorium ICD Code: R40.4 - Transient alteration of awareness Status: Acute (7) Hypokalemia ICD Code: E87.6 - Hypokalemia Assessment and Plan Assessment and Plan Congestive heart failure and elevated troponins. Will diurese with some Lasix. Consult cardiology. Trend troponins. We will get an echocardiogram. Accurate I's and O's and daily weights POSSIBLE AORTIC STENOSIS - AWAIT ECHO RESULTS Hypokalemia Will replace Bilateral lower extremity edema we'll diuresis monitor for I's and O's and daily weights Altered mental status will monitor Dyspnea on exertion shortness of breath Will diurese and check echo Renal insufficiency we'll continue to monitor daily diurese Poor protein status monitor daily protein calorie malnourishment We'll continue to monitor here throughout the admission for any other issues that may arise REMAINS ON OXYGEN DUE TO DYSPNEA Code Status Full code Discussed Condition With ER and patient and RN and physical therapy Discharge Planning AM LABS DW RN AND PT APPRECIATE CARDIOLOGY INPUT Problem Qualifiers (1) CHF (congestive heart failure): Qualified Codes: I50.9 - Heart failure, unspecified Calvin Julian DO May 15, 2017 14:14
[2017-05-15 16:24] LABS: HEMOGLOBIN A1C 5.1 % (4.3-6.0)
--- NOTE | 2017-05-15 17:21 | ECHRPT ---
Indication: HEART FAILURE CONCLUSIONS The left ventricular systolic function is severely reduced with an estimated ejection fraction in th e range of 20-25%. Mid to apical anterior and anteroseptal wall akinesis. Otherwise global hypokinesis. The right ventricular systoilc function is moderately decreased. Severe mitral valve regurgitation. Severe aortic valve stenosis (peak 114, mean 66, JASMINA 0.3). [id number] aortic valve regurgitation. There is moderate tricuspid valve regurgitation. Mild pulmonary valve regurgitation. Left pleural effusion noted. BP: 114 / 86 HR: 90 Rhythm: Sinus MEASUREMENTS (Male / Female) Normal Values Technical Quality:Fair 2D ECHO LVOT Diameter 1.8 cm Aortic Root Diameter 3.5 cm DOPPLER AV Peak Velocity 534.0 cm/s AV Peak Gradient 114.1 mmHg AV Mean Gradient 66.0 mmHg AV Velocity Time Integral 106.0 cm AI Peak Velocity 476.0 cm/s AI Peak Gradient 90.6 mmHg AI Pressure Half Time 152.0 ms LVOT Peak Velocity 50.4 cm/s LVOT Peak Gradient 1.0 mmHg LVOT Velocity Time Integral 10.6 cm LVOT Cardiac Index 1565.7 cm/minm AV Area Cont Eq vti 0.3 cm AV Area Cont Eq pk 0.2 cm Mitral E Point Velocity 96.7 cm/s Mitral A Point Velocity 70.1 cm/s Mitral E to A Ratio 1.4 TR Peak Velocity 335.0 cm/s TR Peak Gradient 44.9 mmHg Right Atrial Pressure 10.0 mmHg Pulmonary Artery Systolic Pressu 54.9 mmHg Right Ventricular Systolic Press 54.9 mmHg PV Peak Velocity 43.6 cm/s PV Peak Gradient 0.8 mmHg FINDINGS LEFT VENTRICLE Normal left ventricular size. Wall thickness is normal. The left ventricular systolic function is severely reduced with an estimated ejection fraction in th e range of 20-25%. Mid to apical anterior and anteroseptal wall akinesis. Otherwise global hypokinesis. RIGHT VENTRICLE The right ventricular size is normal. The right ventricular systoilc function is moderately decreased. LEFT ATRIUM The left atrial size is moderately dilated. RIGHT ATRIUM The right atrial size is moderately dilated. ATRIAL SEPTUM Normal atrial septal thickness. AORTA The aortic root and proximal ascending aorta are normal in size on limited imaging. MITRAL VALVE Calcification of both mitral valve leaflets. Severe mitral valve regurgitation. The mitral valve regurgitation jet is directed posteriorly. No mitral valve stenosis. AORTIC VALVE Cannot rule out a bicuspid aortic valve or trileaflet valve with partially fused commissure. Severe thickening of the aortic valve leaflets. Severe aortic valve stenosis (peak 114, mean 66, JASMINA 0.3) [id number] aortic valve regurgitation. TRICUSPID VALVE Structurally normal tricuspid valve. There is moderate tricuspid valve regurgitation. The estimated pulmonary arterial pressure is 54.9 mmHg. PULMONARY VALVE Mild pulmonary valve regurgitation. VESSELS The inferior vena cava is normal in size. PERICARDIUM No pericardial effusion. Left pleural effusion noted. Tanner De La Cruz DO (Electronically Signed) Final Date:15 May 2017 17:21
[2017-05-15] MEDS ORDERED: ALTEPLASE RECOMBINANT 2 MG VIAL IV ONE (18:15)
[2017-05-15] MEDS: METOLAZONE 5 MG TAB PO SCH (18:27)
[2017-05-15] MEDS: LORazepam 0.5 MG TAB PO PRN (18:28)
[2017-05-16] VITALS (9 sets, daily range): BP systolic 80–114; BP diastolic 45–57; PULSE 72–93; RESP 17–20; TEMP 97–98.1; O2SAT 95–100
[2017-05-16] MEDS: LORazepam 0.5 MG TAB PO PRN (01:02)
[2017-05-16 07:24] LABS: AUTOMATED NEUTROPHIL # 9.2 TH/MM3 (1.8-7.7); BASOPHIL % 0.1 % (0.0-2.0); HEMATOCRIT 26.6 % (35.0-46.0); LYMPH % 7.7 % (9.0-44.0); LYMPHOCYTE # 0.8 TH/MM3 (1.0-4.8); MEAN CELL VOLUME 92.4 FL (80.0-100.0); MEAN CORPUSCULAR HEMOGLOBIN 31.1 PG (27.0-34.0); MEAN CORPUSCULAR HGB CONC 33.6 % (32.0-36.0); MEAN PLATELET VOLUME 8.6 FL (7.0-11.0); MONOCYTE # 0.6 TH/MM3 (0-0.9); NEUT % 86.2 % (16.0-70.0); PLATELET COUNT 255 TH/MM3 (150-450); RED BLOOD COUNT 2.88 MIL/MM3 (4.00-5.30); RED CELL DISTRIBUTION WIDTH 14.3 % (11.6-17.2); WHITE BLOOD COUNT 10.7 TH/MM3 (4.0-11.0)
[2017-05-16 07:42] LABS: ALBUMIN 2.5 GM/DL (3.4-5.0); ALKALINE PHOSPHATASE 89 U/L (45-117); ALT (GPT) 20 U/L (10-53); AST (GOT) 26 U/L (15-37); BICARBONATE 23.7 MEQ/L (21.0-32.0); BLOOD UREA NITROGEN 79 MG/DL (7-18); CALCIUM 7.9 MG/DL (8.5-10.1); CHLORIDE 105 MEQ/L (98-107); CREATININE 1.17 MG/DL (0.50-1.00); GLOMERULAR FILTRATION RATE 44 ML/MIN (>89); GLUCOSE,RANDOM 125 MG/DL (74-106); MAGNESIUM 3.5 MG/DL (1.5-2.5); PHOSPHORUS 5.9 MG/DL (2.5-4.9); SODIUM (NA) 139 MEQ/L (136-145); TOTAL BILIRUBIN ADULT 0.6 MG/DL (0.2-1.0); TOTAL PROTEIN 6.2 GM/DL (6.4-8.2)
[2017-05-16] MEDS: INSULIN ASPART SUPPLEMENTAL SCALE SQ SCH ×2 (08:00→12:00)
[2017-05-16] MEDS: SODIUM CHLORIDE 0.9% FLUSH 10 ML FLUSH IV FLUSH SCH ×2 (08:06→21:34)
[2017-05-16] MEDS: DOCUSATE SODIUM 50 MG/SENNA 8.6 MG TAB PO SCH ×2 (08:08→21:33)
[2017-05-16] MEDS: POTASSIUM CHLORIDE 20 MEQ CONTROLLED RELEASE TAB PO SCH (08:16)
[2017-05-16] MEDS: METOLAZONE 5 MG TAB PO SCH (08:16)
[2017-05-16] MEDS: ASPIRIN EC 81 MG TABEC PO SCH (08:16)
[2017-05-16] MEDS: FUROSEMIDE 20 MG TAB PO SCH (08:16)
[2017-05-16] MEDS: CARVEDILOL 3.125 MG TAB PO SCH ×2 (08:16→21:00)
--- NOTE | 2017-05-16 08:53 | PD.CARD.PN ---
Subjective Subjective Remarks Denies CP, dyspnea, dizziness, palpitations. Objective Medications Item Value Date Time Potassium Chloride 20 meq 05/16/17 0900 (KCl) DAILY/PO 05/16/17 0816 Metolazone 5 mg 05/15/17 1808 (Zaroxolyn) DAILY/PO 05/16/17 0816 Furosemide 20 mg 05/15/17 0900 (Lasix) DAILY/PO 05/16/17 0816 Carvedilol 3.125 mg 05/14/17 2100 (Coreg) Q12HR/PO 05/16/17 0816 Aspirin 81 mg 05/14/17 1630 (Ecotrin Ec) DAILY/PO 05/16/17 0816 Enoxaparin Sodium 30 mg 05/14/17 1400 (Lovenox Inj) Q24H/SQ 05/15/17 1351 Current Medications Medications (Trade) Dose Ordered Sig/Laney Route Start Time Stop Time Status Last Admin (D50w (Vial) Inj) 50 ml UNSCH PRN IV PUSH 05/14/17 13:00 (Glucagon Inj) 1 mg UNSCH PRN OTHER 05/14/17 13:00 (Catapres) 0.1 mg Q4H PRN PO 05/14/17 13:00 (NovoLOG SUPPLEMENTAL SCALE) 1 ACHS SLIDING SCALE SQ 05/14/17 17:00 05/15/17 19:36 (NS Flush) 2 ml UNSCH PRN IV FLUSH 05/14/17 13:00 (NS Flush) 2 ml BID IV FLUSH 05/14/17 21:00 05/15/17 19:35 (Tylenol) 650 mg Q4H PRN PO 05/14/17 13:00 (Zofran Inj) 4 mg Q6H PRN IVP 05/14/17 13:00 (Reglan Inj) 5 mg Q6H PRN IV PUSH 05/14/17 13:00 (Lovenox Inj) 30 mg Q24H SQ 05/14/17 14:00 05/15/17 13:51 (Tylenol) 650 mg Q6H PRN PO 05/14/17 13:00 (Percocet 5-325 Mg) 1 tab Q6H PRN PO 05/14/17 13:00 05/16/17 05:20 (Percocet 10-325 Mg) 1 tab Q6H PRN PO 05/14/17 13:00 (Morphine Inj) 2 mg Q3H PRN IV PUSH 05/14/17 13:00 (Morphine Inj) 4 mg Q3H PRN IV PUSH 05/14/17 13:00 (Narcan Inj) 0.4 mg UNSCH PRN IV PUSH 05/14/17 13:00 (Hoa-Colace) 1 tab BID PO 05/14/17 21:00 05/15/17 19:35 (Milk Of Magnesia Liq) 30 ml Q12H PRN PO 05/14/17 13:00 (Senokot) 17.2 mg Q12H PRN PO 05/14/17 13:00 (Dulcolax Supp) 10 mg DAILY PRN RECTAL 05/14/17 13:00 (Lactulose Liq) 30 ml DAILY PRN PO 05/14/17 13:00 (Ecotrin Ec) 81 mg DAILY PO 05/14/17 16:30 05/16/17 08:16 (Coreg) 3.125 mg Q12HR PO 05/14/17 21:00 05/16/17 08:16 (Lasix) 20 mg DAILY PO 05/15/17 09:00 05/16/17 08:16 (KCl) 20 meq DAILY PO 05/16/17 09:00 05/16/17 08:16 (Zaroxolyn) 5 mg DAILY PO 05/15/17 18:08 05/16/17 08:16 (Ativan) 0.25 mg Q6H PRN PO 05/15/17 18:15 05/16/17 01:02 Vital Signs / I&O Vital Signs Date Time Temp Pulse Resp B/P (MAP) Pulse Ox O2 Delivery O2 Flow Rate FiO2 05/16/17 04:00 97.0 87 18 110/55 (73) 95 05/16/17 00:50 97.2 91 18 114/53 (73) 98 05/16/17 00:34 91 05/15/17 20:56 21 05/15/17 20:00 97.4 86 18 137/64 (88) 97 05/15/17 16:06 97.8 95 20 98/55 (69) 99 05/15/17 12:06 97.9 94 20 103/55 (71) 98 I/O 12/05/15/17 05/15/17 05/16/17 05/16/17 05/16/17 07:00 15:00 23:00 07:00 15:00 23:00 Intake Total 200 ml 280 ml Balance 200 ml 280 ml Intake Oral 200 ml 280 ml # Voids 2 2 3 # Bowel Movements 0 1 1 Physical Exam GENERAL: Well developed, well nourished. No acute distress. HEENT: Jugular venous pressure is normal. CHEST: Lungs clear to auscultation anteriorly. CARDIAC: Regular rate and rhythm without S3, S4. II/ PEEWEE RUSB with markedly diminished S2. ABDOMEN: Soft, nontender, no hepatosplenomegaly. Bowel sounds present. EXTREMITIES: No clubbing, cyanosis, or edema. Laboratory Laboratory Tests Test 05/16/17 06:32 White Blood Count 10.7 TH/MM3 Red Blood Count 2.88 MIL/MM3 Hemoglobin 9.0 GM/DL Hematocrit 26.6 % Mean Corpuscular Volume 92.4 FL Mean Corpuscular Hemoglobin 31.1 PG Mean Corpuscular Hemoglobin Concent 33.6 % Red Cell Distribution Width 14.3 % Platelet Count 255 TH/MM3 Mean Platelet Volume 8.6 FL Neutrophils (%) (Auto) 86.2 % Lymphocytes (%) (Auto) 7.7 % Monocytes (%) (Auto) 6.0 % Eosinophils (%) (Auto) 0.0 % Basophils (%) (Auto) 0.1 % Neutrophils # (Auto) 9.2 TH/MM3 Lymphocytes # (Auto) 0.8 TH/MM3 Monocytes # (Auto) 0.6 TH/MM3 Eosinophils # (Auto) 0.0 TH/MM3 Basophils # (Auto) 0.0 TH/MM3 CBC Comment AUTO DIFF Differential Comment AUTO DIFF CONFIRMED Blood Urea Nitrogen 79 MG/DL Creatinine 1.17 MG/DL Random Glucose 125 MG/DL Total Protein 6.2 GM/DL Albumin 2.5 GM/DL Calcium Level 7.9 MG/DL Phosphorus Level 5.9 MG/DL Magnesium Level 3.5 MG/DL Alkaline Phosphatase 89 U/L Aspartate Amino Transf (AST/SGOT) 26 U/L Alanine Aminotransferase (ALT/SGPT) 20 U/L Total Bilirubin 0.6 MG/DL Sodium Level 139 MEQ/L Potassium Level 4.7 MEQ/L Chloride Level 105 MEQ/L Carbon Dioxide Level 23.7 MEQ/L Anion Gap 10 MEQ/L Estimat Glomerular Filtration Rate 44 ML/MIN Assessment and Plan Problem List: (1) CHF (congestive heart failure) ICD Codes: I50.9 - Heart failure, unspecified Status: Acute Plan: Stable overnight. Appears comfortable, denies any cardiovascular symptoms. 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 She is not a good candidate for open heart surgery. REC medical therapy, as desired by family continue carvedilol, oral furosemide stop metolazone with her increasing renal indices OK for discharge from a cardiac standpoint (2) Elevated troponin ICD Codes: R74.8 - Abnormal levels of other serum enzymes Status: Acute Plan: Troponin levels remained flat and minimally elevated. Doubt due to ACS. Possibly due to CHF. Rec conservative management and w/u. EF on echo ~25%. Rec add low dose SIERRA-I. Code Status full code Discussed Condition With patient and her daughter Problem Qualifiers (1) CHF (congestive heart failure): Qualified Codes: I50.9 - Heart failure, unspecified Luis Armando Singh MD May 16, 2017 08:53
[2017-05-16] MEDS: ENALAPRIL MALEATE 2.5 MG TAB PO SCH (11:54)
--- NOTE | 2017-05-16 12:45 | HHI.PR ---
Subjective Remarks Patient is an 87-year-old female who states that she has no real medical history and who has not seen a doctor in at least 8 years came in today with her family with the positive shortness of breath and some extremity swelling and decreased appetite and weakness. Patient states she has a history of tonsillectomy AND appendectomy. As well as some surgery on her left breast. Patient states that she is here visiting her daughter and she is from [place]. Also has been some history of urinating a lot and some incontinence per chart review family reported that she's been more confused than her baseline.. No fevers or chills patient supposedly becomes winded after only walking a few feet no other complaints Patient denies any hypertension or diabetes 05-15 seen by cardiology ECHO PENDING MAY HAVE AORTIC STENOSIS CHF DW RN AND PT PLACED ON OXYGEN 2LITERS TODAY CONTINUE PT AND OT AM LABS CONTINUE TO DIURESE 05-16 SEEN BY CARDIOLOGY SEVERE AORTIC STENOSIS AND POOR CANDIDATE FOR SURGERY MEDICAL THERAPY ONLY ON OXYGEN PRN WILL NEED FAMILY TO HELP WITH DECISIONS DW CASE MANAGEMENT Objective Vitals Vital Signs Date Time Temp Pulse Resp B/P (MAP) Pulse Ox O2 Delivery O2 Flow Rate FiO2 05/16/17 12:00 97.7 89 20 112/57 (75) 100 05/16/17 08:00 Nasal Cannula 2.00 05/16/17 08:00 98.1 93 20 99/53 (68) 99 05/16/17 04:00 97.0 87 18 110/55 (73) 95 05/16/17 00:50 97.2 91 18 114/53 (73) 98 05/16/17 00:34 91 05/15/17 20:56 21 05/15/17 20:00 97.4 86 18 137/64 (88) 97 05/15/17 16:06 97.8 95 20 98/55 (69) 99 I/O 05/15/17 05/15/17 05/15/17 05/16/17 05/16/17 05/16/17 07:00 15:00 23:00 07:00 15:00 23:00 Intake Total 200 ml 280 ml 240 ml Balance 200 ml 280 ml 240 ml Intake Oral 200 ml 280 ml 240 ml IV Total 0 ml # Voids 2 2 3 # Bowel Movements 0 1 1 Result Diagram: 05/16/1732 05/16/1732 Other Results Laboratory Tests Test 05/14/17 10:10 05/14/17 16:02 05/14/17 22:26 05/15/17 07:08 White Blood Count 13.0 TH/MM3 10.4 TH/MM3 Red Blood Count 3.28 MIL/MM3 2.95 MIL/MM3 Hemoglobin 9.8 GM/DL 8.9 GM/DL Hematocrit 30.3 % 27.1 % Mean Corpuscular Volume 92.6 FL 92.0 FL Mean Corpuscular Hemoglobin 29.9 PG 30.2 PG Mean Corpuscular Hemoglobin Concent 32.3 % 32.9 % Red Cell Distribution Width 14.2 % 14.0 % Platelet Count 293 TH/MM3 258 TH/MM3 Mean Platelet Volume 8.2 FL 8.2 FL Neutrophils (%) (Auto) 83.1 % 82.2 % Lymphocytes (%) (Auto) 8.4 % 11.7 % Monocytes (%) (Auto) 8.0 % 5.8 % Eosinophils (%) (Auto) 0.1 % 0.0 % Basophils (%) (Auto) 0.4 % 0.3 % Neutrophils # (Auto) 10.8 TH/MM3 8.5 TH/MM3 Lymphocytes # (Auto) 1.1 TH/MM3 1.2 TH/MM3 Monocytes # (Auto) 1.0 TH/MM3 0.6 TH/MM3 Eosinophils # (Auto) 0.0 TH/MM3 0.0 TH/MM3 Basophils # (Auto) 0.0 TH/MM3 0.0 TH/MM3 CBC Comment DIFF FINAL DIFF FINAL Differential Comment Urine Color YELLOW Urine Turbidity CLEAR Urine pH 5.5 Urine Specific Wilmore 1.025 Urine Protein TRACE mg/dL Urine Glucose (UA) NEG mg/dL Urine Ketones TRACE mg/dL Urine Occult Blood NEG Urine Nitrite NEG Urine Bilirubin NEG Urine Urobilinogen LESS THAN 2.0 MG/DL Urine Leukocyte Esterase NEG Urine RBC LESS THAN 1 /hpf Urine WBC 1 /hpf Urine Hyaline Casts 1 /lpf Urine Mucus FEW /lpf Microscopic Urinalysis Comment CULT NOT INDICATED Blood Urea Nitrogen 50 MG/DL 60 MG/DL Creatinine 0.81 MG/DL 0.89 MG/DL Random Glucose 124 MG/DL 124 MG/DL Total Protein 7.0 GM/DL 6.4 GM/DL Albumin 2.8 GM/DL 2.7 GM/DL Calcium Level 8.0 MG/DL 7.9 MG/DL Alkaline Phosphatase 74 U/L 76 U/L Aspartate Amino Transf (AST/SGOT) 15 U/L 22 U/L Alanine Aminotransferase (ALT/SGPT) 15 U/L 13 U/L Total Bilirubin 0.6 MG/DL 0.5 MG/DL Sodium Level 138 MEQ/L 139 MEQ/L Potassium Level 3.3 MEQ/L 3.8 MEQ/L Chloride Level 103 MEQ/L 104 MEQ/L Carbon Dioxide Level 24.9 MEQ/L 24.8 MEQ/L Anion Gap 10 MEQ/L 10 MEQ/L Estimat Glomerular Filtration Rate 67 ML/MIN 60 ML/MIN Total Creatine Kinase 64 U/L 51 U/L 46 U/L 38 U/L Troponin I 0.23 NG/ML 0.21 NG/ML 0.24 NG/ML 0.24 NG/ML B-Type Natriuretic Peptide 4277 PG/ML Thyroid Stimulating Hormone 3rd Gen 0.806 uIU/ML 0.534 uIU/ML Phosphorus Level 4.6 MG/DL Magnesium Level 3.2 MG/DL Hemoglobin A1c 5.1 % Free Thyroxine 1.50 NG/DL Test 05/16/17 06:32 White Blood Count 10.7 TH/MM3 Red Blood Count 2.88 MIL/MM3 Hemoglobin 9.0 GM/DL Hematocrit 26.6 % Mean Corpuscular Volume 92.4 FL Mean Corpuscular Hemoglobin 31.1 PG Mean Corpuscular Hemoglobin Concent 33.6 % Red Cell Distribution Width 14.3 % Platelet Count 255 TH/MM3 Mean Platelet Volume 8.6 FL Neutrophils (%) (Auto) 86.2 % Lymphocytes (%) (Auto) 7.7 % Monocytes (%) (Auto) 6.0 % Eosinophils (%) (Auto) 0.0 % Basophils (%) (Auto) 0.1 % Neutrophils # (Auto) 9.2 TH/MM3 Lymphocytes # (Auto) 0.8 TH/MM3 Monocytes # (Auto) 0.6 TH/MM3 Eosinophils # (Auto) 0.0 TH/MM3 Basophils # (Auto) 0.0 TH/MM3 CBC Comment AUTO DIFF Differential Comment AUTO DIFF CONFIRMED Blood Urea Nitrogen 79 MG/DL Creatinine 1.17 MG/DL Random Glucose 125 MG/DL Total Protein 6.2 GM/DL Albumin 2.5 GM/DL Calcium Level 7.9 MG/DL Phosphorus Level 5.9 MG/DL Magnesium Level 3.5 MG/DL Alkaline Phosphatase 89 U/L Aspartate Amino Transf (AST/SGOT) 26 U/L Alanine Aminotransferase (ALT/SGPT) 20 U/L Total Bilirubin 0.6 MG/DL Sodium Level 139 MEQ/L Potassium Level 4.7 MEQ/L Chloride Level 105 MEQ/L Carbon Dioxide Level 23.7 MEQ/L Anion Gap 10 MEQ/L Estimat Glomerular Filtration Rate 44 ML/MIN Imaging Last Impressions Head CT 05/14/17954 Signed Impressions: Service Date/Time: Sunday, May 14, 2017 11:12 - CONCLUSION: 1. No acute hemorrhage or mass effect. 2. Atrophy and chronic small vessel ischemic change. 3. Small lacunar infarct in the right basal ganglia. Jerry Sy MD Chest X-Ray 05/14/17954 Signed Impressions: Service Date/Time: Sunday, May 14, 2017 10:49 - CONCLUSION: 1. Midinspiratory exam with streaky opacity at the lung bases which may represent atelectasis or scarring. 2. Mild cardiomegaly with no definite pulmonary edema. Jerry Sy MD Objective Remarks GENERAL: This is a well-nourished, well-developed patient, in some mild distress. SKIN: No rashes, ecchymoses or lesions. Cool and dry. HEAD: Atraumatic. Normocephalic. No temporal or scalp tenderness. EYES: Pupils equal round and reactive. Extraocular motions intact. No scleral icterus. No injection or drainage. ENT: Nose without bleeding, purulent drainage or septal hematoma. Throat without erythema, tonsillar hypertrophy or exudate. Uvula midline. Airway patent. Tongue is midline NECK: Trachea midline. No JVD or lymphadenopathy. Supple, nontender, no meningeal signs. CARDIOVASCULAR: Regular rate and rhythm without 2 /6 PEEWEE AT RUSB, gallops, or rubs. S1 and S2 no S3 or S4 RESPIRATORY: Clear to auscultation. Breath sounds equal bilaterally. No wheezes , or rhonchi. Some basilar rales GASTROINTESTINAL: Abdomen soft, non-tender, nondistended. No hepato-splenomegaly , or palpable masses. No guarding. MUSCULOSKELETAL: Extremities without clubbing, cyanosis, +3-4 bilateral lower extremity edema. No joint tenderness, effusion, or edema noted. No calf tenderness. Negative Homans sign bilaterally. NEUROLOGICAL: Awake and alert. Cranial nerves II through XII intact. Motor and sensory grossly within normal limits. Five out of 5 muscle strength in all muscle groups. Normal speech. Insight and judgment is limited Mood and behaviors appropriate Procedures MILY HOOD Echo 2D Comp with doppler 05/15/17 Indication: HEART FAILURE CONCLUSIONS The left ventricular systolic function is severely reduced with an estimated ejection fraction in the range of 20-25%. Mid to apical anterior and anteroseptal wall akinesis. Otherwise global hypokinesis. The right ventricular systoilc function is moderately decreased. Severe mitral valve regurgitation. Severe aortic valve stenosis (peak 114, mean 66, JASMINA 0.3). [id number] aortic valve regurgitation. There is moderate tricuspid valve regurgitation. Mild pulmonary valve regurgitation. Left pleural effusion noted. BP: 114 / 86 HR: 90 Rhythm: Sinus MEASUREMENTS (Male / Female) Normal Values Technical Quality:Fair 2D ECHO LVOT Diameter 1.8 cm Aortic Root Diameter 3.5 cm DOPPLER AV Peak Velocity 534.0 cm/s AV Peak Gradient 114.1 mmHg AV Mean Gradient 66.0 mmHg AV Velocity Time Integral 106.0 cm AI Peak Velocity 476.0 cm/s AI Peak Gradient 90.6 mmHg AI Pressure Half Time 152.0 ms LVOT Peak Velocity 50.4 cm/s LVOT Peak Gradient 1.0 mmHg LVOT Velocity Time Integral 10.6 cm LVOT Cardiac Index 1565.7 cm/minm AV Area Cont Eq vti 0.3 cm AV Area Cont Eq pk 0.2 cm Mitral E Point Velocity 96.7 cm/s Mitral A Point Velocity 70.1 cm/s Mitral E to A Ratio 1.4 TR Peak Velocity 335.0 cm/s TR Peak Gradient 44.9 mmHg Right Atrial Pressure 10.0 mmHg Pulmonary Artery Systolic Pressu 54.9 mmHg Right Ventricular Systolic Press 54.9 mmHg PV Peak Velocity 43.6 cm/s PV Peak Gradient 0.8 mmHg FINDINGS LEFT VENTRICLE Normal left ventricular size. Wall thickness is normal. The left ventricular systolic function is severely reduced with an estimated ejection fraction in the range of 20-25%. Mid to apical anterior and anteroseptal wall akinesis. Otherwise global hypokinesis. RIGHT VENTRICLE The right ventricular size is normal. The right ventricular systoilc function is moderately decreased. LEFT ATRIUM The left atrial size is moderately dilated. RIGHT ATRIUM The right atrial size is moderately dilated. ATRIAL SEPTUM Normal atrial septal thickness. AORTA The aortic root and proximal ascending aorta are normal in size on limited imaging. MITRAL VALVE Calcification of both mitral valve leaflets. Severe mitral valve regurgitation. The mitral valve regurgitation jet is directed posteriorly. No mitral valve stenosis. AORTIC VALVE Cannot rule out a bicuspid aortic valve or trileaflet valve with partially fused commissure. Severe thickening of the aortic valve leaflets. Severe aortic valve stenosis (peak 114, mean 66, JASMINA 0.3) [id number] aortic valve regurgitation. TRICUSPID VALVE Structurally normal tricuspid valve. There is moderate tricuspid valve regurgitation. The estimated pulmonary arterial pressure is 54.9 mmHg. PULMONARY VALVE Mild pulmonary valve regurgitation. VESSELS The inferior vena cava is normal in size. PERICARDIUM No pericardial effusion. Left pleural effusion noted. Tanner De La Cruz DO Medications and IVs Laboratory Tests Test 05/14/17 10:10 05/14/17 16:02 05/14/17 22:26 05/15/17 07:08 White Blood Count 13.0 TH/MM3 10.4 TH/MM3 Red Blood Count 3.28 MIL/MM3 2.95 MIL/MM3 Hemoglobin 9.8 GM/DL 8.9 GM/DL Hematocrit 30.3 % 27.1 % Mean Corpuscular Volume 92.6 FL 92.0 FL Mean Corpuscular Hemoglobin 29.9 PG 30.2 PG Mean Corpuscular Hemoglobin Concent 32.3 % 32.9 % Red Cell Distribution Width 14.2 % 14.0 % Platelet Count 293 TH/MM3 258 TH/MM3 Mean Platelet Volume 8.2 FL 8.2 FL Neutrophils (%) (Auto) 83.1 % 82.2 % Lymphocytes (%) (Auto) 8.4 % 11.7 % Monocytes (%) (Auto) 8.0 % 5.8 % Eosinophils (%) (Auto) 0.1 % 0.0 % Basophils (%) (Auto) 0.4 % 0.3 % Neutrophils # (Auto) 10.8 TH/MM3 8.5 TH/MM3 Lymphocytes # (Auto) 1.1 TH/MM3 1.2 TH/MM3 Monocytes # (Auto) 1.0 TH/MM3 0.6 TH/MM3 Eosinophils # (Auto) 0.0 TH/MM3 0.0 TH/MM3 Basophils # (Auto) 0.0 TH/MM3 0.0 TH/MM3 CBC Comment DIFF FINAL DIFF FINAL Differential Comment Urine Color YELLOW Urine Turbidity CLEAR Urine pH 5.5 Urine Specific Wilmore 1.025 Urine Protein TRACE mg/dL Urine Glucose (UA) NEG mg/dL Urine Ketones TRACE mg/dL Urine Occult Blood NEG Urine Nitrite NEG Urine Bilirubin NEG Urine Urobilinogen LESS THAN 2.0 MG/DL Urine Leukocyte Esterase NEG Urine RBC LESS THAN 1 /hpf Urine WBC 1 /hpf Urine Hyaline Casts 1 /lpf Urine Mucus FEW /lpf Microscopic Urinalysis Comment CULT NOT INDICATED Blood Urea Nitrogen 50 MG/DL 60 MG/DL Creatinine 0.81 MG/DL 0.89 MG/DL Random Glucose 124 MG/DL 124 MG/DL Total Protein 7.0 GM/DL 6.4 GM/DL Albumin 2.8 GM/DL 2.7 GM/DL Calcium Level 8.0 MG/DL 7.9 MG/DL Alkaline Phosphatase 74 U/L 76 U/L Aspartate Amino Transf (AST/SGOT) 15 U/L 22 U/L Alanine Aminotransferase (ALT/SGPT) 15 U/L 13 U/L Total Bilirubin 0.6 MG/DL 0.5 MG/DL Sodium Level 138 MEQ/L 139 MEQ/L Potassium Level 3.3 MEQ/L 3.8 MEQ/L Chloride Level 103 MEQ/L 104 MEQ/L Carbon Dioxide Level 24.9 MEQ/L 24.8 MEQ/L Anion Gap 10 MEQ/L 10 MEQ/L Estimat Glomerular Filtration Rate 67 ML/MIN 60 ML/MIN Total Creatine Kinase 64 U/L 51 U/L 46 U/L 38 U/L Troponin I 0.23 NG/ML 0.21 NG/ML 0.24 NG/ML 0.24 NG/ML B-Type Natriuretic Peptide 4277 PG/ML Thyroid Stimulating Hormone 3rd Gen 0.806 uIU/ML 0.534 uIU/ML Phosphorus Level 4.6 MG/DL Magnesium Level 3.2 MG/DL Hemoglobin A1c 5.1 % Free Thyroxine 1.50 NG/DL Test 05/16/17 06:32 White Blood Count 10.7 TH/MM3 Red Blood Count 2.88 MIL/MM3 Hemoglobin 9.0 GM/DL Hematocrit 26.6 % Mean Corpuscular Volume 92.4 FL Mean Corpuscular Hemoglobin 31.1 PG Mean Corpuscular Hemoglobin Concent 33.6 % Red Cell Distribution Width 14.3 % Platelet Count 255 TH/MM3 Mean Platelet Volume 8.6 FL Neutrophils (%) (Auto) 86.2 % Lymphocytes (%) (Auto) 7.7 % Monocytes (%) (Auto) 6.0 % Eosinophils (%) (Auto) 0.0 % Basophils (%) (Auto) 0.1 % Neutrophils # (Auto) 9.2 TH/MM3 Lymphocytes # (Auto) 0.8 TH/MM3 Monocytes # (Auto) 0.6 TH/MM3 Eosinophils # (Auto) 0.0 TH/MM3 Basophils # (Auto) 0.0 TH/MM3 CBC Comment AUTO DIFF Differential Comment AUTO DIFF CONFIRMED Blood Urea Nitrogen 79 MG/DL Creatinine 1.17 MG/DL Random Glucose 125 MG/DL Total Protein 6.2 GM/DL Albumin 2.5 GM/DL Calcium Level 7.9 MG/DL Phosphorus Level 5.9 MG/DL Magnesium Level 3.5 MG/DL Alkaline Phosphatase 89 U/L Aspartate Amino Transf (AST/SGOT) 26 U/L Alanine Aminotransferase (ALT/SGPT) 20 U/L Total Bilirubin 0.6 MG/DL Sodium Level 139 MEQ/L Potassium Level 4.7 MEQ/L Chloride Level 105 MEQ/L Carbon Dioxide Level 23.7 MEQ/L Anion Gap 10 MEQ/L Estimat Glomerular Filtration Rate 44 ML/MIN A/P Problem List: (1) CHF (congestive heart failure) ICD Code: I50.9 - Heart failure, unspecified Status: Acute (2) Anemia ICD Code: D64.9 - Anemia, unspecified Status: Acute (3) Elevated troponin ICD Code: R74.8 - Abnormal levels of other serum enzymes Status: Acute (4) Acute kidney injury ICD Code: N17.9 - Acute kidney failure, unspecified Status: Acute (5) Bilateral lower extremity edema ICD Code: R60.0 - Localized edema Status: Acute (6) Altered sensorium ICD Code: R40.4 - Transient alteration of awareness Status: Acute (7) Hypokalemia ICD Code: E87.6 - Hypokalemia Assessment and Plan Assessment and Plan Congestive heart failure and elevated troponins. Will diurese with some Lasix. Consult cardiology. Trend troponins. We will get an echocardiogram. Accurate I's and O's and daily weights POSSIBLE AORTIC STENOSIS - AWAIT ECHO RESULTS EF OF 20-25% SEVERE AORTIC STENOSIS- MEDICAL THERAPY RECOMMENDED Hypokalemia Will replace Bilateral lower extremity edema we'll diuresis monitor for I's and O's and daily weights Altered mental status will monitor Dyspnea on exertion shortness of breath Will diurese and check echo SEVERE AORTIC STENOSIS BY ECHO Renal insufficiency we'll continue to monitor daily diurese Poor protein status monitor daily protein calorie malnourishment We'll continue to monitor here throughout the admission for any other issues that may arise REMAINS ON OXYGEN DUE TO DYSPNEA Code Status Full code FAMILY NEEDS TO DECIDE ON CODE STATUS AND HOW AGGRESSIVE THEY WANT TO BE Discharge Planning AM LABS DW RN AND PT APPRECIATE CARDIOLOGY INPUT Problem Qualifiers (1) CHF (congestive heart failure): Qualified Codes: I50.9 - Heart failure, unspecified Calvin Julian DO May 16, 2017 12:45
[2017-05-16] MEDS: ENOXAPARIN SODIUM 30 MG/0.3 ML SYRINGE SQ SCH (13:23)
[2017-05-16] MEDS ORDERED: SODIUM CHLOR 0.9% 250 ML INJ 250 ML IV ONE (23:00)
[2017-05-17] VITALS (9 sets, daily range): BP systolic 80–101; BP diastolic 48–62; PULSE 76–93; RESP 17–24; TEMP 96.2–97.8; O2SAT 96–99
[2017-05-17 06:52] LABS: AUTOMATED NEUTROPHIL # 9.1 TH/MM3 (1.8-7.7); BASOPHIL % 0.1 % (0.0-2.0); HEMATOCRIT 26.5 % (35.0-46.0); HEMOGLOBIN 8.6 GM/DL (11.6-15.3); LYMPH % 8.8 % (9.0-44.0); MEAN CELL VOLUME 91.6 FL (80.0-100.0); MEAN CORPUSCULAR HEMOGLOBIN 29.9 PG (27.0-34.0); MEAN CORPUSCULAR HGB CONC 32.6 % (32.0-36.0); MEAN PLATELET VOLUME 8.3 FL (7.0-11.0); MONO % 6.8 % (0.0-8.0); MONOCYTE # 0.7 TH/MM3 (0-0.9); NEUT % 84.3 % (16.0-70.0); PLATELET COUNT 240 TH/MM3 (150-450); RED BLOOD COUNT 2.89 MIL/MM3 (4.00-5.30); RED CELL DISTRIBUTION WIDTH 14.1 % (11.6-17.2); WHITE BLOOD COUNT 10.8 TH/MM3 (4.0-11.0)
[2017-05-17 07:15] LABS: ALBUMIN 2.3 GM/DL (3.4-5.0); ALKALINE PHOSPHATASE 91 U/L (45-117); ALT (GPT) 20 U/L (10-53); AST (GOT) 24 U/L (15-37); BICARBONATE 23.6 MEQ/L (21.0-32.0); BLOOD UREA NITROGEN 90 MG/DL (7-18); CALCIUM 7.7 MG/DL (8.5-10.1); CHLORIDE 108 MEQ/L (98-107); CREATININE 1.14 MG/DL (0.50-1.00); GLOMERULAR FILTRATION RATE 45 ML/MIN (>89); GLUCOSE,RANDOM 98 MG/DL (74-106); MAGNESIUM 3.3 MG/DL (1.5-2.5); PHOSPHORUS 5.3 MG/DL (2.5-4.9); SODIUM (NA) 142 MEQ/L (136-145); TOTAL BILIRUBIN ADULT 0.5 MG/DL (0.2-1.0)
[2017-05-17] MEDS: CARVEDILOL 3.125 MG TAB PO SCH ×2 (07:58→21:20)
[2017-05-17] MEDS: SODIUM CHLORIDE 0.9% FLUSH 10 ML FLUSH IV FLUSH SCH ×2 (07:58→21:20)
[2017-05-17] MEDS: FUROSEMIDE 20 MG TAB PO SCH (07:59)
[2017-05-17] MEDS: DOCUSATE SODIUM 50 MG/SENNA 8.6 MG TAB PO SCH ×2 (07:59→21:20)
[2017-05-17] MEDS: ASPIRIN EC 81 MG TABEC PO SCH (07:59)
[2017-05-17] MEDS: ENALAPRIL MALEATE 2.5 MG TAB PO SCH (07:59)
[2017-05-17] MEDS: POTASSIUM CHLORIDE 20 MEQ CONTROLLED RELEASE TAB PO SCH (07:59)
[2017-05-17] MEDS ORDERED: NIFEdipine 30 MG SUSTAINED RELEASE TAB PO ONE (11:30)
[2017-05-17] MEDS ORDERED: SODIUM CHLOR 0.9% 250 ML INJ 250 ML IV ONE (11:30)
[2017-05-17] MEDS: ENOXAPARIN SODIUM 30 MG/0.3 ML SYRINGE SQ SCH (13:25)
--- NOTE | 2017-05-17 23:57 | HHI.PR ---
Subjective Remarks Patient seen today around noon. She is confused but calm. Appears to deny pain Objective Vital Signs Date Time Temp Pulse Resp B/P (MAP) Pulse Ox O2 Delivery O2 Flow Rate FiO2 05/17/17 20:00 97.4 78 17 94/50 (65) 96 05/17/17 20:00 Nasal Cannula 2.00 05/17/17 19:45 79 05/17/17 16:00 97.8 90 24 100/55 (70) 98 05/17/17 12:00 96.2 90 24 86/62 (70) 99 05/17/17 08:00 97.3 93 20 101/56 (71) 98 05/17/17 07:00 Nasal Cannula 2.00 05/17/17 04:00 97.8 77 18 96/52 (67) 99 05/17/17 04:00 91 05/17/17 00:35 88/48 (61) 05/17/17 00:00 97.7 89 18 80/54 (63) 97 I/O 05/17/17 05/17/17 05/17/17 05/18/17 05/18/17 05/18/17 07:00 15:00 23:00 07:00 15:00 23:00 Intake Total 50 ml 110 ml Balance 50 ml 110 ml Intake Oral 50 ml 110 ml # Voids 3 3 # Bowel Movements 0 Result Diagram: 05/17/1760605/17/17606 Objective Remarks GENERAL: patient sitting up in bed. Appears comfortable. Disoriented but calm. SKIN: Warm and dry. HEAD: Normocephalic. EYES: No scleral icterus. No injection or drainage. NECK: Supple, trachea midline. No JVD or lymphadenopathy. CARDIOVASCULAR: Regular rate and rhythm without murmurs, gallops, or rubs. RESPIRATORY: Breath sounds equal bilaterally. No accessory muscle use. GASTROINTESTINAL: Abdomen soft, non-tender, nondistended. MUSCULOSKELETAL: No cyanosis, trace peripheral edema. BACK: Nontender without obvious deformity. No CVA tenderness. A/P Assessment and Plan //Congestive heart failure and elevated troponins. // Aortic stenosis, mitral regurgitation = EF OF 20-25% SEVERE AORTIC STENOSIS- MEDICAL THERAPY RECOMMENDED = Discontinue Lasix, lisinopril. We will focus on afterload reduction with nifedipine. //Hypokalemia. Improved after replacement //Bilateral lower extremity edema we'll diuresis monitor for I's and O's and daily weights //Altered mental status //Lacunar infarct -CT with chronic changes. Small lacunar infarct Echocardiogram without thrombus. = Continue aspirin. //Dyspnea on exertion shortness of breath SEVERE AORTIC STENOSIS BY ECHO //Renal insufficiency we'll continue to monitor -Discontinue diuresis. Focus on afterload reduction. //Poor protein status monitor daily protein calorie malnourishment We'll continue to monitor here throughout the admission for any other issues that may arise REMAINS ON OXYGEN DUE TO DYSPNEA Discharge Planning discussed with daughter. We'll consult hospice King Ruby MD May 17, 2017 23:57
[2017-05-18] VITALS (10 sets, daily range): BP systolic 92–110; BP diastolic 46–59; PULSE 78–87; RESP 17–32; TEMP 97.6–98.2; O2SAT 89–96
[2017-05-18 07:31] LABS: AUTOMATED NEUTROPHIL # 9.3 TH/MM3 (1.8-7.7); BASOPHIL % 0.2 % (0.0-2.0); HEMATOCRIT 26.6 % (35.0-46.0); HEMOGLOBIN 8.7 GM/DL (11.6-15.3); LYMPH % 11.8 % (9.0-44.0); LYMPHOCYTE # 1.3 TH/MM3 (1.0-4.8); MEAN CELL VOLUME 92.9 FL (80.0-100.0); MEAN CORPUSCULAR HEMOGLOBIN 30.4 PG (27.0-34.0); MEAN CORPUSCULAR HGB CONC 32.7 % (32.0-36.0); MEAN PLATELET VOLUME 8.8 FL (7.0-11.0); MONO % 5.8 % (0.0-8.0); MONOCYTE # 0.7 TH/MM3 (0-0.9); NEUT % 82.2 % (16.0-70.0); PLATELET COUNT 273 TH/MM3 (150-450); RED BLOOD COUNT 2.87 MIL/MM3 (4.00-5.30); RED CELL DISTRIBUTION WIDTH 14.3 % (11.6-17.2); WHITE BLOOD COUNT 11.3 TH/MM3 (4.0-11.0)
[2017-05-18] MEDS: SODIUM CHLORIDE 0.9% FLUSH 10 ML FLUSH IV FLUSH SCH ×2 (07:34→20:56)
[2017-05-18 07:57] LABS: ALBUMIN 2.2 GM/DL (3.4-5.0); BICARBONATE 22.6 MEQ/L (21.0-32.0); CALCIUM 7.7 MG/DL (8.5-10.1); CREATININE 1.24 MG/DL (0.50-1.00); MAGNESIUM 3.6 MG/DL (1.5-2.5); PHOSPHORUS 4.8 MG/DL (2.5-4.9)
[2017-05-18] MEDS: ASPIRIN EC 81 MG TABEC PO SCH (08:16)
[2017-05-18] MEDS: DOCUSATE SODIUM 50 MG/SENNA 8.6 MG TAB PO SCH ×2 (08:16→20:56)
[2017-05-18] MEDS: CARVEDILOL 3.125 MG TAB PO SCH (08:18)
[2017-05-18] MEDS ORDERED: NIFEdipine 30 MG SUSTAINED RELEASE TAB PO SCH (09:00)
[2017-05-18] MEDS: LORazepam 0.5 MG TAB PO PRN (09:08)
[2017-05-18 10:07] LABS: BANDS 7 % (0-6); CORRECTED NUCLEATED RBC 6 /100 WBC (0-0); LYMPHOCYTES 5 % (9-44); MONOCYTES 2 % (0-8); NEUTROPHIL # MANUAL DIFF 10.5 TH/MM3 (1.8-7.7); NUCLEATED RED BLOOD CELL 6 (0-0); POLYS (SEG NEUTROPHILS) 86 % (16-70)
[2017-05-18 10:08] LABS: POLYCHROMASIA 2.9 % (0.0-1.9)
[2017-05-18] MEDS ORDERED: FUROSEMIDE 20 MG TAB PO ONE (10:15)
[2017-05-18] MEDS: ENOXAPARIN SODIUM 30 MG/0.3 ML SYRINGE SQ SCH (13:04)
--- NOTE | 2017-05-18 16:43 | HHI.PR ---
Subjective Remarks Patient able to make eye contact, moans, however no meaningful conversation. Stressed with nursing. Reports that family was in earlier today, however stepped out. Hospice consulted. Objective Vital Signs Date Time Temp Pulse Resp B/P (MAP) Pulse Ox O2 Delivery O2 Flow Rate FiO2 05/18/17 15:56 97.7 82 18 101/50 (67) 94 05/18/17 12:00 98.1 83 20 106/59 (75) 94 05/18/17 11:54 82 05/18/17 08:04 81 05/18/17 08:00 98.2 81 22 93/55 (68) 91 05/18/17 04:00 97.7 78 17 94 92/54 (67) 05/18/17 04:00 Nasal Cannula 2.00 05/18/17 03:43 80 05/18/17 00:00 97.6 84 18 97/46 (63) 96 05/18/17 00:00 Nasal Cannula 2.00 05/17/17 23:48 76 05/17/17 20:00 97.4 78 17 94/50 (65) 96 05/17/17 20:00 Nasal Cannula 2.00 05/17/17 19:45 79 I/O 05/17/17 05/17/17 05/17/17 05/18/17 05/18/17 05/18/17 07:00 15:00 23:00 07:00 15:00 23:00 Intake Total 50 ml 110 ml 0 ml Output Total 200 ml Balance 50 ml 110 ml -200 ml Intake Oral 50 ml 110 ml 0 ml Output Urine Total 200 ml # Voids 3 3 2 # Bowel Movements 0 0 Result Diagram: 05/18/17 0605/18/17 0607 Objective Remarks GENERAL: patient sitting up in bed. Patient moaning. Makes eye contact, but does not answer questions. SKIN: Warm and dry. HEAD: Normocephalic. EYES: No scleral icterus. No injection or drainage. NECK: Supple, trachea midline. lying in bed CARDIOVASCULAR: Regular rate and rhythm without murmurs, gallops, or rubs. RESPIRATORY: Breath sounds equal bilaterally. No accessory muscle use. GASTROINTESTINAL: Abdomen soft, non-tender, nondistended. MUSCULOSKELETAL: No cyanosis, trace peripheral edema. BACK: Nontender without obvious deformity. No CVA tenderness. A/P Assessment and Plan 05/18 with severe aortic stenosis, mitral insufficiency, aortic insufficiency. With acute kidney injury, BUN up to 110. Suspect uremic encephalopathy. Hypotensive. Discontinue blood pressure medication. BUN up to 5000.Continue Lasix. Per previous discussion with daughter last night, would not be interested in dialysis. Hospice consult pending. //Congestive heart failure and elevated troponins. // Aortic stenosis, mitral regurgitation = EF OF 20-25% SEVERE AORTIC STENOSIS- MEDICAL THERAPY RECOMMENDED = Hypotensive. Hold blood pressure meds. Continue Lasix. Otherwise as above. //Hypokalemia. Improved after replacement //Bilateral lower extremity edema we'll diuresis monitor for I's and O's and daily weights //Altered mental status //Lacunar infarct -CT with chronic changes. Small lacunar infarct Echocardiogram without thrombus. = Continue aspirin. //Dyspnea on exertion shortness of breath SEVERE AORTIC STENOSIS BY ECHO //Renal insufficiency we'll continue to monitor -Worsening. As above. //Poor protein status monitor daily protein calorie malnourishment We'll continue to monitor here throughout the admission for any other issues that may arise REMAINS ON OXYGEN DUE TO DYSPNEA Discharge Planning Hospice consulted. Daughter who is POA requests no invasive testing or treatment. King Ruby MD May 18, 2017 16:43
[2017-05-19] MEDS ORDERED: FUROSEMIDE 20 MG TAB PO SCH (09:00)
--- NOTE | 2017-05-29 10:52 | PQ ---
Physician Query Response Document PATIENT: MILY HOOD : 1930 ADMIT DATE: 05/14/2017 12:26 PM DISCH DATE: 05/18/2017 10:25 PM RESPONDING PROVIDER #: MARLON QUERY TEXT: CHF Acuity and Type Congestive Heart Failure is documented in the Medical Record. Please document the type and acuity (in cludes probable or suspected) Such as: Type: -- Systolic -- Diastolic -- Combined -- Other, please specify Acuity: -- Acute -- Chronic -- Acute on chronic -- Other, please specify Also please document the underlying cause of the CHF (includes probable or suspected) If you have any additional questions/comments and/or concerns, please do not hesitate to reach out to the [facility]/Coding Hotline, Ext. [phone]. The patient's Clinical Indicators include: Echo performed 05/15/17: Indication: HEART FAILURE CONCLUSIONS The left ventricular systolic function is severely reduced with an estimated ejection fraction in the range of 20-25%. Mid to apical anterior and anteroseptal wall akinesis. Otherwise global hypokinesis. The right ventricular systoilc function is moderately decreased. Severe mitral valve regurgitation. Severe aortic valve stenosis (peak 114, mean 66, JASMINA 0.3). [id number] aortic valve regurgitation. There is moderate tricuspid valve regurgitation. Mild pulmonary valve regurgitation. Left pleural effusion noted. Consult Dr. Singh 05/14/17: The slight elevation in troponin may be due to congestive heart failure. The precipitating factor for her congestive heart failure may be valvular disease. Exam does suggest the possibility of severe aortic stenosis, possibly aortic regurgitation as well. Query created by: Leonor Medley on 05/23/2017 5:54 PM RESPONSE TEXT: Systolic congestive heart failure with ef of 20-25% with severe mitral valve regurgitation and severe aortic valve stenosis Electronically signed by: Calvin Julian 05/29/2017 10:48 AM
== END 2017-05-18 22:25 | disposition hospice, inpatient (51) | DRG 291 ==
LOC: NEPC 09:16 → NEDA 12:26 → N04A 14:01
PROVIDERS: ADMIT Internal Medicine; ATTEND Internal Medicine
DX: I50.9 Heart failure, unspecified (principal); G93.49 Other encephalopathy; N17.9 Acute kidney failure, unspecified; I95.9 Hypotension, unspecified; E46 Unspecified protein-calorie malnutrition; I08.3 Combined rheumatic disorders of mitral, aortic and tricuspid valves; D64.9 Anemia, unspecified; Z86.73 Personal history of transient ischemic attack (TIA), and cerebral infarction without residual deficits; R41.82 Altered mental status, unspecified; E87.6 Hypokalemia; Z51.5 Encounter for palliative care; Z68.26 Body mass index [BMI] 26.0-26.9, adult
CPT/HCPCS: 70450; 71020; 80053; 80069; 81001; 82550; 82948; 83036; 83735; 83880; 84100; 84439; 84443; 84484; 85007; 85025; 85027; 93005; 93306; J1650; J1815; J1940; J7050